=== PATIENT | female | born 1940 | race Caucasian/White ===

== ENCOUNTER → 2017-01-24 | Outpatient (CLI) | payer MEDICARE, BC ==
[~2017-01-24] VITALS: Ht 182.9 cm; Wt 90.7 kg
[~2017-01-24] MED LIST: METF500T9 PO
--- NOTE | 2017-01-24 12:18 | RAD ---
Indication suspect findings on outside mammography and ultrasound. Note is made of recent outside examinations 01/06/2017 demonstrating a suspect mass at the 12:00 position of the right breast. Preliminary ultrasound images were obtained. The suspect mass seen on outside examinations is reproduced. Image guided biopsy was discussed with the patient. The risks of infection and bleeding were outlined. The small risk of pneumothorax was also discussed. The patient understood the risks associated with the procedure and wished to proceed. The skin was prepped and draped in the routine fashion. Local anesthesia was accomplished with 1% buffered lidocaine. Core biopsy system was utilized. Under ultrasound guidance 4 core samples were obtained. Retrieved tissue was transferred to formaldehyde and then to pathology. At the completion of the biopsy procedure a clip was placed at the biopsy site. The patient tolerated the biopsy procedure unremarkably. At the completion of the biopsy and the deployment of the clip the patient was transferred to a dedicated mammographic suite and conventional MLO and CC images were obtained. The clip is appropriately positioned in the area of concern in the right breast. The biopsy site was dressed in routine fashion and the patient discharged with appropriate instructions. IMPRESSION: Successful ultrasound-guided biopsy of suspect mass in the right breast
[2017-01-24 13:29] VITALS: BP 136/83
--- NOTE | 2017-01-27 13:41 | PATHOLOGY ---
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 SEE COMMENT. COMMENT: Sections of the right breast nodule needle biopsy reveal a malignant epithelial neoplasm. The malignant cells form solid nests and tubules within pools of mucin. The malignant cells have modest amounts of pale eosinophilic cytoplasm, and possess rounded to ovoid mildly pleomorphic hyperchromatic nuclei. The tumor measures up to 0.6 cm in greatest dimension on the glass slide. There are no areas of typical invasive ductal carcinoma. There are no tumor associated calcifications. There is no lymphovascular tumor invasion. Breast prognostic studies will be obtained, the results of which will be reported separately. The case is also examined by Dr. Martinez, who concurs with the diagnosis. (JPM:mgr; 01/27/2017) REPORT ELECTRONICALLY SIGNED BY: Thomas Lozano M.D. DATE/TIME: 01/27/2017 13:41 * * * * * * * * GROSS PATHOLOGY: Received in formalin labeled "Mariann Johnson, right breast," are multiple needle cores of yellow-cedeño fibrofatty tissue measuring 0.7 x 0.4 x 0.2 cm in aggregate dimensions. The tissue is submitted in its entirety in cassetteA1. The cold ischemic time is 5 minutes. The total formalin fixation time is 10 hours and 45 minutes. (JPM; 01/24/17) INITIAL CPT CODE(S): A; 89228, 81766(4) Professional services performed by [facility] [place] [address] Technical services performed by [facility] at [address] [place] [address], [facility] [address], [place] [address]. SPECIMEN(S) RECEIVED: A.Right breast nodule CLINICAL HISTORY: Right breast nodule PATIENT: MARIANN JOHNSON /AGE: 4 1940 (Age: 76) PATIENT #: [id number] ALT CASE #: SPECIMEN COLLECTION DATE: 01/24/2017 SPECIMEN RECEIVED DATE: 01/24/2017 [facility] - [address] [place] [id number] - PHONE: [phone] * * * END OF REPORT * * *
== END | disposition home or self-care (01) ==
LOC: US 13:14
PROVIDERS: ATTEND Internal Medicine
DX: R92.8 Other abnormal and inconclusive findings on diagnostic imaging of breast (principal)
CPT/HCPCS: 76942; C1713; G0206; 77065

== ENCOUNTER → 2017-09-05 | Outpatient (CLI) | payer MEDICARE, BC, OTHER | END | disposition home or self-care (01) | LOC: ECHO 09:54 | DX: M79.89 Other specified soft tissue disorders (principal); I51.9 Heart disease, unspecified; R60.0 Localized edema | CPT/HCPCS: 93306 ==

== ENCOUNTER 2018-10-20 14:04 | Emergency (ER) | payer MEDICARE, BC, OTHER ==
[~2018-10-20] VITALS: Ht 167.6 cm; Wt 52.2 kg
[~2018-10-20 14:04] MED LIST changes: +ACET500T68 PO; +ALEN70TA6 PO; +CHOL2000 PO; +CYAN10005 PO; +GLUC1CAP41 PO; +HYDR-2761 PO; +HYDR-3164 PO; +METF10007 PO; +METF500T16; +MULT-460 PO
--- NOTE | 2018-10-20 14:28 | PHYS DOC ---
Past Medical History Past Medical History: Arthritis, Cancer, Other Additional Past Medical Histor: BREAST CA Past Surgical History: Other Additional Past Surgical Histo: R LYMPH NODE REMOVED Alcohol Use: None Drug Use: None Adult General Chief Complaint Chief Complaint: BREAST PROBLEM HPI HPI Patient is a 78 year old with a history of breast cancer status post right lumpectomy 3 years ago and Parkinson's disease presents to the ED and complaining of trip and fall on Friday. Patient states 2 days ago she tripped on a mat while going into a store. States that she hit the right side of her face and right breast/ribs. Describes the pain as sharp. Rates the pain as 8 out of 10. Patient has pain with range of motion. Denies LOC, vision changes, nausea/vomiting, dizziness, weakness, symptoms prior to fall or use of blood thinners. Patient's daughter is her clinic clerk and is at bedside. Also witness the injury. Review of Systems Review of Systems Constitutional: Denies fever or chills [] Eyes: Denies change in visual acuity, redness, or eye pain [] HENT: Complains of right facial injury Denies nasal congestion or sore throat [] Respiratory: Denies cough or shortness of breath [] Cardiovascular: No additional information not addressed in HPI [] GI: Denies abdominal pain, nausea, vomiting, bloody stools or diarrhea [] : Denies dysuria or hematuria [] Musculoskeletal: Complains of right rib pain. Denies back pain.] Integument: Denies rash or skin lesions [] Neurologic: Denies headache, focal weakness or sensory changes [] All other systems were reviewed and found to be within normal limits, except as documented in this note. Current Medications Current Medications Current Medications Medications (Trade) Dose Ordered Sig/Tristan Start Time Stop Time Status Last Admin Dose Admin Acetaminophen/ Hydrocodone Bitart (Lortab 5/325) 1 tab 1X ONCE 10/20/18 14:30 10/20/18 14:31 DC 10/20/18 14:27 1 TAB Allergies Allergies Allergies Coded Allergies Type Severity Reaction Last Updated Verified No Known Medication Allergies Allergy Unknown 07/15/18 Yes tramadol Adverse Reaction Intermediate vomiting and diarrhea 02/26/17 Yes Physical Exam Physical Exam Constitutional: Well developed, well nourished, no acute distress, non-toxic appearance. [] HENT: Normocephalic, atraumatic. airway patent. mild right maxillary region tenderness. Normal Jaw ROM. No overlying skin changes. Eyes: PERRLA, EOMI, conjunctiva normal, no discharge. [] Neck: Normal range of motion, no tenderness, supple, no stridor. [] Cardiovascular:Heart rate regular rhythm, no murmur [] Lungs & Thorax: Bilateral breath sounds clear to auscultation. mild right anterior ribs/right breast tenderness. Pain with palpation and ROM. No overlying skin changes. No palpable mass.[] Abdomen: Bowel sounds normal, soft, no tenderness, no masses, no pulsatile masses. [] Skin: Warm, dry, no erythema, no rash. [] Back: No tenderness, no CVA tenderness. [] Extremities: No tenderness, no cyanosis, no clubbing, ROM intact, no edema. [] Neurologic: Alert and oriented X 3, normal motor function, normal sensory function, no focal deficits noted. [] Psychologic: Affect normal, judgement normal, mood normal. [] Current Patient Data Vital Signs Vital Signs Date Time Temp Pulse Resp B/P (MAP) Pulse Ox O2 Delivery O2 Flow Rate FiO2 10/20/18 14:28 97.7 81 16 142/64 (90) 97 Room Air 97.7 EKG EKG [] Radiology/Procedures Radiology/Procedures []CT of the head and facial bones without contrast 10/20/2018 2:42 PM Indication: TRIPPED OVER OBJECT AND HIT FACE AT [facility]. PAIN Comparison: None available Procedure: Multidetector CT imaging of the head and facial bones was performed without the administration of contrast. Findings: There is no evidence of acute intracranial hemorrhage. There is no evidence of acute territorial infarction. Please note that CT is limited for evaluation of acute ischemia. No mass effect or midline shift is identified . The ventricles and basilar cisterns have an appropriate appearance. No abnormal extra-axial fluid collections are seen. No evidence of acute facial bone fractures identified. Paranasal sinuses are clear. Zygomatic arches and pterygoid plates are intact. Bony orbits are intact. No other orbital abnormality is identified. Nasal bones are intact. Impression: 1.No evidence of acute intracranial abnormality 2. No evidence of acute facial bone fracture. CT scan of the chest without contrast Clinical indications: Fall. Breast pain. History of lung nodules. COMPARISON: July 15, 2017. TECHNIQUE: Noncontrast helical CT scanning of the chest was performed. Without contrast, the sensitivity to detect organ pathology is decreased. PQRS compliance Statement One or more of the following individualized dose reduction techniques were utilized for this study: 1. Automated exposure control 2. Adjustment of the mA and/or kV according to patient size 3. Use of iterative reconstruction technique FINDINGS: No enlarged thoracic lymphadenopathy is evident. No focal aneurysmal dilatation of the thoracic aorta is seen. Heart size is within normal limits. No pericardial effusion is seen. There is dependent atelectasis within both lower lobes. No new lung consolidation with air bronchograms is seen. Lung nodules described previously are again seen. No new lung nodule is evident. No pleural effusion or pneumothorax is seen. Proximal bronchial tree is patent. Old healed posterior left second and third and fourth and fifth and sixth rib fractures are seen. No acute appearing rib fracture is evident. No compression fracture is evident. Mild pectus deformity of the sternum is seen. No lytic process is seen. IMPRESSION: No acute radiographic abnormality is evident. No significant change in lung nodules described on July 15, 2018. As per that report, follow-up chest CT in July or August 2019 is recommended to ensure stability of lung nodules. PROCEDURE: CT CERVICAL SPINE WO CONTRAST Examination: CT CERVICAL SPINE WO CONTRAST History: TRIPPED OVER OBJECT AND HIT FACE AT [facility]. PAIN Comparison/Correlation: None Findings: Axial images of the cervical spine were obtained without contrast. Sagittal and coronal reformatted images were provided. Atlantoaxial joint degenerative remodeling is present. Mild C4-5 disc space narrowing is present. Moderate C5-C6 disc space narrowing. Mild CT 6/7 disc space narrowing. No fracture or bony destruction. Mild neural foraminal narrowing at left seen 4-5 due to bony encroachment. Soft tissues of neck are unremarkable. Impression: No acute fracture or malalignment. Degenerative change. Course & Med Decision Making Course & Med Decision Making Pertinent Labs and Imaging studies reviewed. (See chart for details) []Discussed imaging findings with patient and clinic clerk/daughter at bedside. Patient's pain improved in the ED. No acute injury or findings on physical exam. Patient well-appearing. Discussed symptomatic treatment and follow-up outpatient with PCP. Reviewed nodule findings and advisement for follow-up CT scan timeline. Provided contact information/education. Discussed reasons to return to the ED. Patient and Daughter understands and agrees with plan. Dragon Disclaimer Dragon Disclaimer This electronic medical record was generated, in whole or in part, using a voice recognition dictation system. Departure Departure Impression: Primary Impression: Rib pain Additional Impressions: Facial injury Breast pain Disposition: HOME, SELF-CARE Condition: IMPROVED Referrals: MARIA DOLORES BARRON MD (PCP) Patient Instructions: Rib Contusion Problem Qualifiers SABINO WOODS Oct 20, 2018 14:28
[2018-10-20] MEDS ORDERED: HYDROcodone/APAP 5/325MG 1 TAB TABLET PO ONE (14:30)
--- NOTE | 2018-10-20 15:05 | RAD ---
Examination: CT CERVICAL SPINE WO CONTRAST History: TRIPPED OVER OBJECT AND HIT FACE AT [facility]. PAIN Comparison/Correlation: None Findings: Axial images of the cervical spine were obtained without contrast. Sagittal and coronal reformatted images were provided. Atlantoaxial joint degenerative remodeling is present. Mild C4-5 disc space narrowing is present. Moderate C5-C6 disc space narrowing. Mild CT 6/7 disc space narrowing. No fracture or bony destruction. Mild neural foraminal narrowing at left seen 4-5 due to bony encroachment. Soft tissues of neck are unremarkable. Impression: No acute fracture or malalignment. Degenerative change. PQRS Compliance Statement: One or more of the following individualized dose reduction techniques were utilized for this examination: 1. Automated exposure control 2. Adjustment of the mA and/or kV according to patient size 3. Use of iterative reconstruction technique Electronically signed by: Donal Esquivel MD (10/20/2018 3:02 PM) [id number]
--- NOTE | 2018-10-20 15:08 | RAD ---
CT of the head and facial bones without contrast 10/20/2018 2:42 PM Indication: TRIPPED OVER OBJECT AND HIT FACE AT [facility]. PAIN Comparison: None available Procedure: Multidetector CT imaging of the head and facial bones was performed without the administration of contrast. Findings: There is no evidence of acute intracranial hemorrhage. There is no evidence of acute territorial infarction. Please note that CT is limited for evaluation of acute ischemia. No mass effect or midline shift is identified . The ventricles and basilar cisterns have an appropriate appearance. No abnormal extra-axial fluid collections are seen. No evidence of acute facial bone fractures identified. Paranasal sinuses are clear. Zygomatic arches and pterygoid plates are intact. Bony orbits are intact. No other orbital abnormality is identified. Nasal bones are intact. Impression: 1.No evidence of acute intracranial abnormality 2. No evidence of acute facial bone fracture. CT DOSING PQRS STATEMENT: One or more of the following individualized dose reduction techniques were utilized for this examination: 1. Automated exposure control 2. Adjustment of the mA and/or kV according to patient size 3. Use of iterative reconstruction technique Electronically signed by: Oscar Gunn MD (10/20/2018 3:05 PM) [id number]
--- NOTE | 2018-10-20 16:29 | RAD ---
CT scan of the chest without contrast Clinical indications: Fall. Breast pain. History of lung nodules. COMPARISON: July 15, 2017. TECHNIQUE: Noncontrast helical CT scanning of the chest was performed. Without contrast, the sensitivity to detect organ pathology is decreased. PQRS compliance Statement One or more of the following individualized dose reduction techniques were utilized for this study: 1. Automated exposure control 2. Adjustment of the mA and/or kV according to patient size 3. Use of iterative reconstruction technique FINDINGS: No enlarged thoracic lymphadenopathy is evident. No focal aneurysmal dilatation of the thoracic aorta is seen. Heart size is within normal limits. No pericardial effusion is seen. There is dependent atelectasis within both lower lobes. No new lung consolidation with air bronchograms is seen. Lung nodules described previously are again seen. No new lung nodule is evident. No pleural effusion or pneumothorax is seen. Proximal bronchial tree is patent. Old healed posterior left second and third and fourth and fifth and sixth rib fractures are seen. No acute appearing rib fracture is evident. No compression fracture is evident. Mild pectus deformity of the sternum is seen. No lytic process is seen. IMPRESSION: No acute radiographic abnormality is evident. No significant change in lung nodules described on July 15, 2018. As per that report, follow-up chest CT in July or August 2019 is recommended to ensure stability of lung nodules. Electronically signed by: Bharath Navarro MD (10/20/2018 4:26 PM) [id number]
[2018-10-20 16:30] VITALS: BP 112/68
[2018-11-23] MEDS ORDERED: CARB1TAB2 PO (08:37)
[2018-11-23] MEDS ORDERED: ACET500T33 PO (08:37)
== END 2018-10-20 16:44 | disposition home or self-care (01) ==
LOC: ER 14:04
DX: S09.8XXA Other specified injuries of head, initial encounter (principal); R07.81 Pleurodynia; N64.4 Mastodynia; M54.2 Cervicalgia; M19.90 Unspecified osteoarthritis, unspecified site; Z88.5 Allergy status to narcotic agent; W01.0XXA Fall on same level from slipping, tripping and stumbling without subsequent striking against object, initial encounter; Y93.89 Activity, other specified; Y92.512 Supermarket, store or market as the place of occurrence of the external cause; Y99.8 Other external cause status
CPT/HCPCS: 70450; 70486; 71250; 72125; 99284-25

== ENCOUNTER 2020-10-29 09:53 | Inpatient (IN) | payer MEDICARE, BC, OTHER ==
[~2020-10-29] VITALS: Ht 160 cm; Wt 61.0 kg
[~2020-10-29 09:53] MED LIST changes: +ACET500T33 PO; -ALEN70TA6 PO; +ALEN70TA71 PO; +ASPI-630 PO; +ATOR20TA58 PO; +CARB-183 PO; +CIPR250T30 PO; +CYAN-25 PO; -CYAN10005 PO; +FURO20TA3 PO; +INSU100I11 SQ; +METF-658 PO; -METF500T9 PO; +PIOG30TA62 PO
[2020-10-29] MEDS ORDERED: IV NORMAL SALINE 1000ML BAG 1,000 ML IV SCH (10:00)
[2020-10-29 10:30] LABS: BASO % 1 % (0-3); EOS % 1 % (0-3); HEMATOCRIT 32.3 % (36.0-47.0); HEMOGLOBIN 10.9 g/dL (12.0-15.5); LYMPH # 0.4 x10^3/uL (1.0-4.8); LYMPH % 15 % (24-48); MEAN CORPUSCULAR HEMOGLOBIN 31 pg (25-35); MEAN CORPUSCULAR HGB CONC 34 g/dL (31-37); MEAN CORPUSCULAR VOLUME 92 fL (79-100); MONO # 0.3 x10^3/uL (0.0-1.1); MONO % 12 % (0-9); NEUT % 72 % (31-73); PLATELET COUNT 292 x10^3/uL (140-400); RED BLOOD COUNT 3.53 x10^6/uL (3.50-5.40); RED CELL DISTRIBUTION WIDTH 15.5 % (11.5-14.5); WHITE BLOOD COUNT 2.8 x10^3/uL (4.0-11.0)
--- NOTE | 2020-10-29 10:31 | RAD ---
EXAM: CHEST ONE VIEW. HISTORY: Chest pain. COMPARISON: 09/04/2019. FINDINGS: A frontal view of the chest is obtained. There are no confluent infiltrates. Mild interstitial opacities in the bases are stable and likely re flects scarring. The lungs are expanded to the 12th posterior ribs. There is no pneumothorax or pleur al effusion. The heart is at the upper limits of normal size given this projection. A surgical clip i s noted in the right axilla. There are atherosclerotic calcifications of the aorta. IMPRESSION: 1. Correlate for chronic obstructive pulmonary disease. Mild interstitial lung disease versus scarrin g in the bases. Electronically signed by: Juan Carlos Bloom MD (10/29/2020 10:29 AM) [facility]
[2020-10-29 10:39] LABS: BARBITURATES NEG (NEG); BENZODIAZEPINES NEG (NEG); CANNABINOIDS NEG (NEG); COCAINE NEG (NEG); METHADONE NEG (NEG); OPIATES NEG (NEG); PHENCYCLIDINE NEG (NEG)
[2020-10-29 10:40] LABS: AMPHETAMINE/METHAMPHETAMINE NEG (NEG)
[2020-10-29 10:44] LABS: CALCIUM 9.1 mg/dL (8.5-10.1); CREATININE 0.7 mg/dL (0.6-1.0); GFR 80.3
[2020-10-29 10:50] LABS: ALBUMIN 4.1 g/dL (3.4-5.0); ALBUMIN/GLOBULIN RATIO 1.3 (1.0-1.7); MAGNESIUM 1.8 mg/dL (1.8-2.4); TOTAL BILIRUBIN 0.4 mg/dL (0.2-1.0); TOTAL PROTEIN 7.3 g/dL (6.4-8.2)
[2020-10-29 11:08] LABS: BILIRUBIN,URINE NEGATIVE (NEG); CLARITY,URINE CLEAR; COLOR,URINE YELLOW; NITRITE,URINE NEGATIVE (NEG); PH,URINE 6.5 (<5.0-8.0); PROTEIN,URINE NEGATIVE (NEG-TRACE); UROBILINOGEN,URINE 0.2 mg/dL (0.2 mg/dL)
[2020-10-29 11:52] LABS: BACTERIA,URINE 0 /HPF (0-FEW); RBC,URINE 0 /HPF (0-2); WBC,URINE OCC /HPF (0-4)
--- NOTE | 2020-10-29 13:27 | RAD ---
EXAM: Head CT without contrast; maxillofacial bone CT without contrast; cervical spine CT without con trast. HISTORY: Trauma. TECHNIQUE: Computed tomographic images of the head, maxillofacial bones and cervical spine were obtai des without contrast. *One or more of the following individualized dose reduction techniques were utilized for this examina tion: 1. Automated exposure control. 2. Adjustment of the mA and/or kV according to patient size. 3. Use of iterative reconstruction technique. COMPARISON: 06/03/2020. FINDINGS: Head: There is no hemorrhage. There is no mass effect or midline shift. There is no hydrocephalus. Th ere is cerebral atrophy. There is decreased attenuation within the cerebral white matter due to chron ic small vessel disease. No calvarial lesion is seen. The mastoid air cells are clear. Maxillofacial bones: No displaced fracture is seen. The temporomandibular joints are intact. There is mild ethmoid and left maxillary sinus mucosal thickening. There is mild nasal septal deviation. The ostiomeatal units are patent. Cervical spine: There is cervical curvature due to thoracic scoliosis. There is degenerative endplate remodeling with disc space narrowing and osteophytosis throughout the cervical spine. There is calci fication within several disc spaces. There is multilevel facet and uncovertebral arthropathy. No acut e fracture is seen. There is biapical pleural parenchymal scarring. There is no pneumothorax. The com bination of degenerative changes results in mild left foraminal stenosis at C3-C4, moderate left fora patrice stenosis at C4-C5, and mild right foraminal stenosis at C6-C7. IMPRESSION: 1. No acute intracranial finding or evidence of acute maxillary facial bone or cervical spine trauma. 2. Bilateral cerebral white changes, but be due to chronic small vessel disease. 3. Cerebral atrophy. 4. Degenerative change within the cervical spine, resulting in stenosis as described above. Electronically signed by: Ester Galeas MD (10/29/2020 1:25 PM) [id number]
--- NOTE | 2020-10-29 13:54 | EKG ---
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
--- NOTE | 2020-10-29 14:05 | PHYS DOC ---
Past Medical History Past Medical History: Arthritis, Cancer, Other Additional Past Medical Histor: BREAST CA, ESSENTIAL TREMORS, BLADDER INFECTION Past Surgical History: Other Additional Past Surgical Histo: R LYMPH NODE REMOVED Smoking Status: Never Smoker Alcohol Use: None Drug Use: None Adult General Chief Complaint Chief Complaint: WEAKNESS/GENERALIZED HPI HPI Patient is a 80 year old female brought to the emergency department by EMS for new onset of generalized weakness. 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 Daughter also notes that the patient has a history of Parkinson's disease and has had 4 falls over the last week. States this is a mild increase for the patient at baseline. No reported fevers, chills, cough, back pain or other additional injury. Review of Systems Review of Systems Constitutional: Denies fever or chills [] Eyes: Denies change in visual acuity, redness, or eye pain [] HENT: Denies nasal congestion or sore throat [] Respiratory: Denies cough or shortness of breath [] Cardiovascular: No additional information not addressed in HPI [] GI: Denies abdominal pain, nausea, vomiting, bloody stools or diarrhea [] : Denies dysuria or hematuria [] Musculoskeletal: Denies back pain or joint pain [] Integument: Denies rash or skin lesions [] Neurologic: Denies headache, focal weakness or sensory changes [] Endocrine: Denies polyuria or polydipsia [] All other systems were reviewed and found to be within normal limits, except as documented in this note. Current Medications Current Medications Current Medications Medications (Trade) Dose Ordered Sig/Tristan Start Time Stop Time Status Last Admin Dose Admin Sodium Chloride 1,000 ml @ 1,000 mls/hr Q1H 10/29/20 10:00 10/29/20 10:59 DC 10/29/20 10:29 1,000 MLS/HR Allergies Allergies Allergies Coded Allergies Type Severity Reaction Last Updated Verified amoxicillin Allergy Intermediate Nausea and Vomiting/diarrhea 09/05/19 Yes clavulanic acid Allergy Intermediate Nausea and Vomiting/diarrhea 09/05/19 Yes tramadol Adverse Reaction Intermediate vomiting and diarrhea 02/26/17 Yes Physical Exam Physical Exam Constitutional: Well developed, well nourished, no acute distress, non-toxic appearance. [] HENT: Normocephalic, atraumatic, bilateral external ears normal, oropharynx moist, no oral exudates, nose normal. [] Eyes: PERRLA, EOMI, conjunctiva normal, no discharge. [] Neck: Normal range of motion, no tenderness, supple, no stridor. [] Cardiovascular:Heart rate regular rhythm, no murmur [] Lungs & Thorax: Bilateral breath sounds clear to auscultation [] Abdomen: Bowel sounds normal, soft, no tenderness, no masses, no pulsatile masses. [] Skin: Warm, dry, no erythema, no rash. [] Back: No tenderness, no CVA tenderness. [] Extremities: No tenderness, no cyanosis, no clubbing, ROM intact, no edema. [] Neurologic: Alert and oriented X 3, normal motor function, normal sensory function, no focal deficits noted. [] Psychologic: Affect normal, judgement normal, mood normal. [] Current Patient Data Vital Signs Vital Signs Date Time Temp Pulse Resp B/P (MAP) Pulse Ox O2 Delivery O2 Flow Rate FiO2 10/29/20 09:53 97.6 75 16 146/63 (90) 94 Room Air 97.6 Lab Values Laboratory Tests Test 10/29/20 10:10 10/29/20 10:15 White Blood Count 2.8 x10^3/uL (4.0-11.0) L Red Blood Count 3.53 x10^6/uL (3.50-5.40) Hemoglobin 10.9 g/dL (12.0-15.5) L Hematocrit 32.3 % (36.0-47.0) L Mean Corpuscular Volume 92 fL (79-100) Mean Corpuscular Hemoglobin 31 pg (25-35) Mean Corpuscular Hemoglobin Concent 34 g/dL (31-37) Red Cell Distribution Width 15.5 % (11.5-14.5) H Platelet Count 292 x10^3/uL (140-400) Neutrophils (%) (Auto) 72 % (31-73) Lymphocytes (%) (Auto) 15 % (24-48) L Monocytes (%) (Auto) 12 % (0-9) H Eosinophils (%) (Auto) 1 % (0-3) Basophils (%) (Auto) 1 % (0-3) Neutrophils # (Auto) 2.0 x10^3/uL (1.8-7.7) Lymphocytes # (Auto) 0.4 x10^3/uL (1.0-4.8) L Monocytes # (Auto) 0.3 x10^3/uL (0.0-1.1) Eosinophils # (Auto) 0.0 x10^3/uL (0.0-0.7) Basophils # (Auto) 0.0 x10^3/uL (0.0-0.2) D-Dimer (Sejal) 0.41 ug/mlFEU (0.00-0.50) Sodium Level 140 mmol/L (136-145) Potassium Level 4.0 mmol/L (3.5-5.1) Chloride Level 103 mmol/L (98-107) Carbon Dioxide Level 28 mmol/L (21-32) Anion Gap 9 (6-14) Blood Urea Nitrogen 24 mg/dL (7-20) H Creatinine 0.7 mg/dL (0.6-1.0) Estimated GFR (Cockcroft-Gault) 80.3 BUN/Creatinine Ratio 34 (6-20) H Glucose Level 160 mg/dL (70-99) H Calcium Level 9.1 mg/dL (8.5-10.1) Magnesium Level 1.8 mg/dL (1.8-2.4) Total Bilirubin 0.4 mg/dL (0.2-1.0) Aspartate Amino Transferase (AST) 22 U/L (15-37) Alanine Aminotransferase (ALT) 8 U/L (14-59) L Alkaline Phosphatase 45 U/L (46-116) L Troponin I Quantitative < 0.017 ng/mL (0.000-0.055) LT-Ncm-Q-Type Natriuretic Peptide 166 pg/mL (0-449) Total Protein 7.3 g/dL (6.4-8.2) Albumin 4.1 g/dL (3.4-5.0) Albumin/Globulin Ratio 1.3 (1.0-1.7) Lipase 117 U/L (73-393) Urine Collection Type Unknown Urine Color Yellow Urine Clarity Clear Urine pH 6.5 (<5.0-8.0) Urine Specific [place] 1.015 (1.000-1.030) Urine Protein Negative mg/dL (NEG-TRACE) Urine Glucose (UA) Negative mg/dL (NEG) Urine Ketones (Stick) Trace mg/dL (NEG) Urine Blood Negative (NEG) Urine Nitrite Negative (NEG) Urine Bilirubin Negative (NEG) Urine Urobilinogen Dipstick 0.2 mg/dL (0.2 mg/dL) Urine Leukocyte Esterase Negative (NEG) Urine RBC 0 /HPF (0-2) Urine WBC Occ /HPF (0-4) Urine Squamous Epithelial Cells Few /LPF Urine Bacteria 0 /HPF (0-FEW) Urine Opiates Screen Neg (NEG) Urine Methadone Screen Neg (NEG) Urine Barbiturates Neg (NEG) Urine Phencyclidine Screen Neg (NEG) Urine Amphetamine/Methamphetamine Neg (NEG) Urine Benzodiazepines Screen Neg (NEG) Urine Cocaine Screen Neg (NEG) Urine Cannabinoids Screen Neg (NEG) Urine Ethyl Alcohol Neg (NEG) Laboratory Tests 10/29/20 10:10 Laboratory Tests 10/29/20 10:10 EKG EKG [] Radiology/Procedures Radiology/Procedures EXAM: Head CT without contrast; maxillofacial bone CT without contrast; cervical spine CT without contrast. HISTORY: Trauma. TECHNIQUE: Computed tomographic images of the head, maxillofacial bones and cervical spine were obtained without contrast. *One or more of the following individualized dose reduction techniques were utilized for this examination: 1. Automated exposure control. 2. Adjustment of the mA and/or kV according to patient size. 3. Use of iterative reconstruction technique. COMPARISON: 06/03/2020. FINDINGS: Head: There is no hemorrhage. There is no mass effect or midline shift. There is no hydrocephalus. There is cerebral atrophy. There is decreased attenuation within the cerebral white matter due to chronic small vessel disease. No calvarial lesion is seen. The mastoid air cells are clear. Maxillofacial bones: No displaced fracture is seen. The temporomandibular joints are intact. There is mild ethmoid and left maxillary sinus mucosal thickening. There is mild nasal septal deviation. The ostiomeatal units are patent. Cervical spine: There is cervical curvature due to thoracic scoliosis. There is degenerative endplate remodeling with disc space narrowing and osteophytosis throughout the cervical spine. There is calcification within several disc spaces. There is multilevel facet and uncovertebral arthropathy. No acute fracture is seen. There is biapical pleural parenchymal scarring. There is no pneumothorax. The combination of degenerative changes results in mild left foraminal stenosis at C3-C4, moderate left foraminal stenosis at C4-C5, and mild right foraminal stenosis at C6-C7. IMPRESSION: 1. No acute intracranial finding or evidence of acute maxillary facial bone or cervical spine trauma. 2. Bilateral cerebral white changes, but be due to chronic small vessel disease. 3. Cerebral atrophy. 4. Degenerative change within the cervical spine, resulting in stenosis as described above. Electronically signed by: Ester Galeas MD (10/29/2020 1:25 PM) [id number] Course & Med Decision Making Course & Med Decision Making Pertinent Labs and Imaging studies reviewed. (See chart for details) [id number] presented to the emergency department for generalized nonspecific weakness. No focal neuro deficits observed but there is some evidence of facial trauma of indeterminate age. Labs obtained to evaluate for any underlying etiology. No back pain, tenderness or any other findings that would suggest any acute trauma to the neck or the back. After the daughter arrived she did state that she was concerned about increasing falls and therefore will obtain a CT scan of the head and cervical spine. Labs reviewed the patient noted to have a mildly elevated BUN suggestive of dehydration. When the nurse attempted to ambulate the patient she was not able to bear any weight on her lower extremities and therefore need to be admitted for ambulatory dysfunction. CT scan of the head and cervical spine did not demonstrate any acute traumatic injury that would explain the patient's current symptomatology. At this time will plan for admission Dragon Disclaimer Dragon Disclaimer This electronic medical record was generated, in whole or in part, using a voice recognition dictation system. Departure Departure Impression: Primary Impression: Ambulatory dysfunction Disposition: ADMITTED INPATIENT Condition: GOOD Referrals: Quita ROSS MD (PCP) DHRUV GUZMAN MD Oct 29, 2020 14:04
[2020-10-29] MEDS ORDERED: ONDANSETRON PF 4 MG/2 ML VIAL. IV PRN (14:15)
[2020-10-29] MEDS ORDERED: MORPHINE SULFATE 4 MG/ML VIAL. IV PRN (14:15)
--- NOTE | 2020-10-29 14:15 | PDOC1 ---
History and Physical Date of Service: DOS: DATE: 10/29/20 TIME: 14:13 History of Present Illness: HPI: 80 year old female brought to the emergency department by EMS for new onset of generalized weakness. 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 Daughter also notes that the patient has a history of Parkinson's disease and has had 4 falls over the last week. States this is a mild increase for the patient at baseline. No reported fevers, chills, cough, back pain or other additional injury. Past Medical/Surgical History: PMH/PSH: Past Medical History: Diabetes mellitus type 2 arthritis, Cancer, BREAST CA, ESSENTIAL TREMORS, BLADDER INFECTION, history of Parkinson's disease Past Surgical History: R LYMPH NODE REMOVED Allergies: Allergies: Coded Allergies: amoxicillin (Verified Allergy, Intermediate, Nausea and Vomiting/diarrhea , 09/05/19) clavulanic acid (Verified Allergy, Intermediate, Nausea and Vomiting/diarrhea , 09/05/19) tramadol (Verified Adverse Reaction, Intermediate, vomiting and diarrhea, 02/26/17) Family History: Family History: Reviewed with no relevant findings Social History: Social History: Smoking Status: Never Smoker Alcohol Use: None Drug Use: None Current Medications: Current Medications Current Medications Sodium Chloride 1,000 ml @ 1,000 mls/hr Q1H IV Last administered on 10/29/20at 10:29; Start 10/29/20 at 10:00; Stop 10/29/20 at 10:59; Status DC Ondansetron HCl (Zofran) 4 mg PRN Q8HRS PRN IV NAUSEA/VOMITING; Start 10/29/20 at 14:15; Stop 10/30/20 at 14:14; Status UNV Morphine Sulfate (Morphine Sulfate) 4 mg PRN Q2HR PRN IV PAIN; Start 10/29/20 at 14:15; Stop 10/30/20 at 14:14; Status UNV Active Scripts Active Aspirin 81 Mg Tab.chew 81 Mg PO DAILYWBKFT 30 Days Atorvastatin Calcium 20 Mg Tablet 20 Mg PO QHS 30 Days Cipro (Ciprofloxacin Hcl) 250 Mg Tablet 250 Mg PO BID 3 Days Humalog (Insulin Lispro) 100 Unit/1 Ml Insuln.pen 0-5 Unit SQ TIDACHC 30 Days Reported Pioglitazone Hcl 30 Mg Tablet 1 Tab PO DAILY 90 Days Sinemet 25-100 Mg Tablet (Carbidopa/Levodopa) 1 Each Tablet 1 Tab PO TID Tylenol Extra Strength (Acetaminophen) 500 Mg Tablet 500 Mg PO BID Metformin Hcl 500 Mg Tablet 500 Mg 2TABS PO BID Vitamin B-12 (Cyanocobalamin (Vitamin B-12)) 1,000 Mcg Tablet 1,000 Mcg PO DAILY Glucosamine & Chondroitin Cap (Glucosa Boss 2KCL/Chondroitin Boss) 1 Each Capsule 1 Each PO DAILY Vitamin D (Cholecalciferol (Vitamin D3)) 2,000 Unit Capsule 1 Cap PO DAILY Alendronate Sodium 70 Mg Tablet 70 Mg PO WEEKLY ON FRIDAY Multiple Vitamin (Multivitamin With Minerals) 1 Each Tablet 1 Each PO DAILY ROS: Review of Systems Review of System REVIEW OF SYSTEMS: GENERAL: Denies weakness SKIN: No bruising, hair changes or rashes. EYES: No blurred, double or loss of vision. NOSE AND THROAT: No history of nosebleeds, hoarseness or sore throat. HEART: No history of palpitations, chest pain or shortness of breath on exertion. LUNGS: Denies cough, hemoptysis, wheezing or shortness of breath. GASTROINTESTINAL: Denies changes in appetite, nausea, vomiting, diarrhea or constipation. GENITOURINARY: No history of frequency, urgency, hesitancy or nocturia. NEUROLOGIC: Denies history of numbness, tingling, or tremor. PSYCHIATRIC: No history of panic, anxiety or depression. ENDOCRINE: No history of heat or cold intolerance, polyuria or polydipsia. EXTREMITIES: Denies joint pain, pain on walking or stiffness. Physical Exam: Vital Signs: Vital Signs Date Time Temp Pulse Resp B/P (MAP) Pulse Ox O2 Delivery O2 Flow Rate FiO2 10/29/20 09:53 97.6 75 16 146/63 (90) 94 Room Air 97.6 Physcial Exam: GEN: No apparent distress. Alert and oriented HEENT: Normal cephalic, atraumatic, external auditory canals are patent EYES: Extraocular muscles are intact, pupil are equally round and reactive to light and accommodation MUSCULOSKELETAL: Well developed , well nourished, good range of motion ENDOCRINE: No thyromegaly was palpated LYMPHATICS: No cervical chain or axillary nodes were noted HEMATOPOIETIC: No bruising NECK: Supple, no JVD, no thyromegaly was noted LUNGS: Clear to auscultation in all lung slaughter without rhonchi or wheezing HEART: RRR, S!, S2 present. Peripheral pulses intact, no obvious murmurs noted ABDOMEN: Soft, nontender. Positive bowel sounds, no organomegaly, normal bowel sounds EXTREMITIES: Without clubbing, cyanosis, or edema. Pedal pulses intact. Negative Homans sign NEUROLOGIC: Normal speech and tone. A&O x 3, moves all extremities, no obvious focal deficits PSYCHIATRIC: Normal affect, normal mood. Stable SKIN: No ulcerations or rashes, good skin turgor, no jaundice VASCULAR: Good capillary refill, neurovascular bundle appears to be intact Labs: Labs: Laboratory Tests Test 10/29/20 10:10 10/29/20 10:15 White Blood Count 2.8 x10^3/uL (4.0-11.0) Red Blood Count 3.53 x10^6/uL (3.50-5.40) Hemoglobin 10.9 g/dL (12.0-15.5) Hematocrit 32.3 % (36.0-47.0) Mean Corpuscular Volume 92 fL (79-100) Mean Corpuscular Hemoglobin 31 pg (25-35) Mean Corpuscular Hemoglobin Concent 34 g/dL (31-37) Red Cell Distribution Width 15.5 % (11.5-14.5) Platelet Count 292 x10^3/uL (140-400) Neutrophils (%) (Auto) 72 % (31-73) Lymphocytes (%) (Auto) 15 % (24-48) Monocytes (%) (Auto) 12 % (0-9) Eosinophils (%) (Auto) 1 % (0-3) Basophils (%) (Auto) 1 % (0-3) Neutrophils # (Auto) 2.0 x10^3/uL (1.8-7.7) Lymphocytes # (Auto) 0.4 x10^3/uL (1.0-4.8) Monocytes # (Auto) 0.3 x10^3/uL (0.0-1.1) Eosinophils # (Auto) 0.0 x10^3/uL (0.0-0.7) Basophils # (Auto) 0.0 x10^3/uL (0.0-0.2) D-Dimer (Sejal) 0.41 ug/mlFEU (0.00-0.50) Sodium Level 140 mmol/L (136-145) Potassium Level 4.0 mmol/L (3.5-5.1) Chloride Level 103 mmol/L (98-107) Carbon Dioxide Level 28 mmol/L (21-32) Anion Gap 9 (6-14) Blood Urea Nitrogen 24 mg/dL (7-20) Creatinine 0.7 mg/dL (0.6-1.0) Estimated GFR (Cockcroft-Gault) 80.3 BUN/Creatinine Ratio 34 (6-20) Glucose Level 160 mg/dL (70-99) Calcium Level 9.1 mg/dL (8.5-10.1) Magnesium Level 1.8 mg/dL (1.8-2.4) Total Bilirubin 0.4 mg/dL (0.2-1.0) Aspartate Amino Transf (AST/SGOT) 22 U/L (15-37) Alanine Aminotransferase (ALT/SGPT) 8 U/L (14-59) Alkaline Phosphatase 45 U/L (46-116) Troponin I Quantitative < 0.017 ng/mL (0.000-0.055) OA-Jkm-D-Type Natriuretic Peptide 166 pg/mL (0-449) Total Protein 7.3 g/dL (6.4-8.2) Albumin 4.1 g/dL (3.4-5.0) Albumin/Globulin Ratio 1.3 (1.0-1.7) Lipase 117 U/L (73-393) Urine Collection Type Unknown Urine Color Yellow Urine Clarity Clear Urine pH 6.5 (<5.0-8.0) Urine Specific [place] 1.015 (1.000-1.030) Urine Protein Negative mg/dL (NEG-TRACE) Urine Glucose (UA) Negative mg/dL (NEG) Urine Ketones (Stick) Trace mg/dL (NEG) Urine Blood Negative (NEG) Urine Nitrite Negative (NEG) Urine Bilirubin Negative (NEG) Urine Urobilinogen Dipstick 0.2 mg/dL (0.2 mg/dL) Urine Leukocyte Esterase Negative (NEG) Urine RBC 0 /HPF (0-2) Urine WBC Occ /HPF (0-4) Urine Squamous Epithelial Cells Few /LPF Urine Bacteria 0 /HPF (0-FEW) Urine Opiates Screen Neg (NEG) Urine Methadone Screen Neg (NEG) Urine Barbiturates Neg (NEG) Urine Phencyclidine Screen Neg (NEG) Urine Amphetamine/Methamphetamine Neg (NEG) Urine Benzodiazepines Screen Neg (NEG) Urine Cocaine Screen Neg (NEG) Urine Cannabinoids Screen Neg (NEG) Urine Ethyl Alcohol Neg (NEG) Laboratory Tests Test 10/29/20 10:10 10/29/20 10:15 White Blood Count 2.8 x10^3/uL (4.0-11.0) Red Blood Count 3.53 x10^6/uL (3.50-5.40) Hemoglobin 10.9 g/dL (12.0-15.5) Hematocrit 32.3 % (36.0-47.0) Mean Corpuscular Volume 92 fL (79-100) Mean Corpuscular Hemoglobin 31 pg (25-35) Mean Corpuscular Hemoglobin Concent 34 g/dL (31-37) Red Cell Distribution Width 15.5 % (11.5-14.5) Platelet Count 292 x10^3/uL (140-400) Neutrophils (%) (Auto) 72 % (31-73) Lymphocytes (%) (Auto) 15 % (24-48) Monocytes (%) (Auto) 12 % (0-9) Eosinophils (%) (Auto) 1 % (0-3) Basophils (%) (Auto) 1 % (0-3) Neutrophils # (Auto) 2.0 x10^3/uL (1.8-7.7) Lymphocytes # (Auto) 0.4 x10^3/uL (1.0-4.8) Monocytes # (Auto) 0.3 x10^3/uL (0.0-1.1) Eosinophils # (Auto) 0.0 x10^3/uL (0.0-0.7) Basophils # (Auto) 0.0 x10^3/uL (0.0-0.2) D-Dimer (Sejal) 0.41 ug/mlFEU (0.00-0.50) Sodium Level 140 mmol/L (136-145) Potassium Level 4.0 mmol/L (3.5-5.1) Chloride Level 103 mmol/L (98-107) Carbon Dioxide Level 28 mmol/L (21-32) Anion Gap 9 (6-14) Blood Urea Nitrogen 24 mg/dL (7-20) Creatinine 0.7 mg/dL (0.6-1.0) Estimated GFR (Cockcroft-Gault) 80.3 BUN/Creatinine Ratio 34 (6-20) Glucose Level 160 mg/dL (70-99) Calcium Level 9.1 mg/dL (8.5-10.1) Magnesium Level 1.8 mg/dL (1.8-2.4) Total Bilirubin 0.4 mg/dL (0.2-1.0) Aspartate Amino Transf (AST/SGOT) 22 U/L (15-37) Alanine Aminotransferase (ALT/SGPT) 8 U/L (14-59) Alkaline Phosphatase 45 U/L (46-116) Troponin I Quantitative < 0.017 ng/mL (0.000-0.055) VA-Koy-C-Type Natriuretic Peptide 166 pg/mL (0-449) Total Protein 7.3 g/dL (6.4-8.2) Albumin 4.1 g/dL (3.4-5.0) Albumin/Globulin Ratio 1.3 (1.0-1.7) Lipase 117 U/L (73-393) Urine Collection Type Unknown Urine Color Yellow Urine Clarity Clear Urine pH 6.5 (<5.0-8.0) Urine Specific [place] 1.015 (1.000-1.030) Urine Protein Negative mg/dL (NEG-TRACE) Urine Glucose (UA) Negative mg/dL (NEG) Urine Ketones (Stick) Trace mg/dL (NEG) Urine Blood Negative (NEG) Urine Nitrite Negative (NEG) Urine Bilirubin Negative (NEG) Urine Urobilinogen Dipstick 0.2 mg/dL (0.2 mg/dL) Urine Leukocyte Esterase Negative (NEG) Urine RBC 0 /HPF (0-2) Urine WBC Occ /HPF (0-4) Urine Squamous Epithelial Cells Few /LPF Urine Bacteria 0 /HPF (0-FEW) Urine Opiates Screen Neg (NEG) Urine Methadone Screen Neg (NEG) Urine Barbiturates Neg (NEG) Urine Phencyclidine Screen Neg (NEG) Urine Amphetamine/Methamphetamine Neg (NEG) Urine Benzodiazepines Screen Neg (NEG) Urine Cocaine Screen Neg (NEG) Urine Cannabinoids Screen Neg (NEG) Urine Ethyl Alcohol Neg (NEG) Images: Images PROCEDURE: CT HEAD AND MAXILLOFACIAL WO PROCEDURE: CT CERVICAL SPINE WO CONTRAST IMPRESSION: 1. No acute intracranial finding or evidence of acute maxillary facial bone or cervical spine trauma. 2. Bilateral cerebral white changes, but be due to chronic small vessel disease. 3. Cerebral atrophy. 4. Degenerative change within the cervical spine, resulting in stenosis as described above. CXR IMPRESSION: 1. Correlate for chronic obstructive pulmonary disease. Mild interstitial lung disease versus scarring in the bases. Assessment/Plan Assessment/Plan Acute generalized weakness Prerenal azotemia Multiple falls Debilitation Leukopenia Anemia of chronic disease History of diabetes mellitus type 2 History of Parkinson's disease History of breast cancer Admit to medicine for further management Fall precautions Continue IV fluids PT OT Vitamin B12 Vitamin D level TSH Restart home Parkinson's medications Lovenox for DVT prophylaxis ADA diet Full code Discussed with RN and SW Disposition inpatient management as above Surrogate decision maker is daughter Justifications for Admission Other Justification MARKO HOLMAN MD Oct 29, 2020 14:15
[2020-10-29] MEDS ORDERED: SENNOSIDES 8.6 MG TABLET PO PRN (15:00)
[2020-10-29] MEDS ORDERED: DEXTROSE 50% 25 GM / 50ML DISP.SYRIN. IV PRN ×2 (15:00)
[2020-10-29] MEDS ORDERED: DOCUSATE SODIUM 100 MG CAPSULE. PO PRN (15:00)
[2020-10-29] MEDS ORDERED: ONDANSETRON PF 4 MG/2 ML VIAL. IVP PRN (15:00)
[2020-10-29] MEDS: IV NORMAL SALINE 1000ML BAG 1,000 ML IV SCH (15:00)
[2020-10-29] MEDS: CARBIDOPA/LEVODOPA 25/100MG TABLET PO SCH ×2 (16:57→21:10)
[2020-10-29] MEDS: INSULIN LISPRO 300 UNITS/3 ML VIAL. SQ SCH (17:00)
[2020-10-29] MEDS ORDERED: LABETALOL 20 MG/4 ML DISP.SYRIN. IVP PRN (17:15)
[2020-10-29 17:31] VITALS: BP 155/57
[2020-10-29 17:32] VITALS: BP 105/90
[2020-10-29 17:33] VITALS: BP 169/73
--- NOTE | 2020-10-29 17:36 | NUR ---
Patient arrived to room 436 at approximately 1710.
[2020-10-29 19:00] VITALS: BP 107/54
[2020-10-29 23:00] VITALS: BP 139/80
[2020-10-30] MEDS: IV NORMAL SALINE 1000ML BAG 1,000 ML IV SCH ×3 (02:16→21:33)
[2020-10-30 03:00] VITALS: BP 139/67
[2020-10-30 06:11] LABS: BASO % 1 % (0-3); EOS % 1 % (0-3); HEMATOCRIT 33.6 % (36.0-47.0); HEMOGLOBIN 10.9 g/dL (12.0-15.5); LYMPH # 0.5 x10^3/uL (1.0-4.8); LYMPH % 16 % (24-48); MEAN CORPUSCULAR HEMOGLOBIN 30 pg (25-35); MEAN CORPUSCULAR HGB CONC 32 g/dL (31-37); MEAN CORPUSCULAR VOLUME 93 fL (79-100); MONO # 0.4 x10^3/uL (0.0-1.1); MONO % 13 % (0-9); NEUT # 2.3 x10^3/uL (1.8-7.7); NEUT % 70 % (31-73); PLATELET COUNT 319 x10^3/uL (140-400); RED BLOOD COUNT 3.64 x10^6/uL (3.50-5.40); RED CELL DISTRIBUTION WIDTH 15.8 % (11.5-14.5); WHITE BLOOD COUNT 3.4 x10^3/uL (4.0-11.0)
[2020-10-30 06:28] LABS: CALCIUM 8.4 mg/dL (8.5-10.1); CREATININE 0.7 mg/dL (0.6-1.0); GFR 80.3; MAGNESIUM 1.8 mg/dL (1.8-2.4); PHOSPHORUS 2.9 mg/dL (2.6-4.7)
[2020-10-30 07:00] VITALS: BP 163/81
--- NOTE | 2020-10-30 07:43 | NUR ---
Patient screaming " help" uncontrollably. RN went to room. Patient found in bed, naked, attempting to take diaper off. Patient kicking and punching staff. Patient stating " You are a horse, get away from me. You are here to kill me. " Patient refusing to stay in bed or keep clothes on. Dr. vila. ethylene compressor operator notified.
--- NOTE | 2020-10-30 07:57 | PDOC ---
[employer] PROGRESS NOTE Date of Service DOS: DATE: 10/30/20 TIME: 07:55 Chief Complaint Chief Complaint Acute generalized weakness Prerenal azotemia Multiple falls Debilitation Leukopenia Anemia of chronic disease History of diabetes mellitus type 2 History of Parkinson's disease History of breast cancer Admit to medicine for further management Fall precautions Continue IV fluids PT OT Vitamin B12 Vitamin D level TSH Restart home Parkinson's medications Lovenox for DVT prophylaxis ADA diet Full code Discussed with RN and SW Disposition inpatient management as above Surrogate decision maker is daughter History of Present Illness History of Present Illness 80 year old female brought to the emergency department by EMS for new onset of generalized weakness. 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 Daughter also notes that the patient has a history of Parkinson's disease and has had 4 falls over the last week. States this is a mild increase for the patient at baseline. No reported fevers, chills, cough, back pain or other additional injury. 10/30/2020 Afebrile, no acute events overnight. Discussed with RN, patient currently standing in her room with significant agitation. Reportedly pulling at her IV. Gave as needed orders for agitation and will make inpatient for possible placement. Charts, labs, imaging reviewed, discussed with RN and manager social media. Vitals/I&O Vitals/I&O: Vital Signs Date Time Temp Pulse Resp B/P (MAP) Pulse Ox O2 Delivery O2 Flow Rate FiO2 10/30/20 07:00 98.8 89 18 163/81 (108) 92 Room Air 98.8 I & O 10/29/20 10/29/20 10/30/20 15:00 23:00 07:00 Intake Total 1000 ml 200 ml 200 ml Balance 1000 ml 200 ml 200 ml Physical Exam General: Alert, No acute distress Heart: Regular rate Lungs: Clear Abdomen: Soft Extremities: No clubbing, No cyanosis Skin: No rashes, No breakdown Labs Labs: Laboratory Tests Test 10/29/20 10:10 10/29/20 10:15 10/29/20 19:17 10/30/20 04:55 White Blood Count 2.8 x10^3/uL (4.0-11.0) Red Blood Count 3.53 x10^6/uL (3.50-5.40) Hemoglobin 10.9 g/dL (12.0-15.5) Hematocrit 32.3 % (36.0-47.0) Mean Corpuscular Volume 92 fL (79-100) Mean Corpuscular Hemoglobin 31 pg (25-35) Mean Corpuscular Hemoglobin Concent 34 g/dL (31-37) Red Cell Distribution Width 15.5 % (11.5-14.5) Platelet Count 292 x10^3/uL (140-400) Neutrophils (%) (Auto) 72 % (31-73) Lymphocytes (%) (Auto) 15 % (24-48) Monocytes (%) (Auto) 12 % (0-9) Eosinophils (%) (Auto) 1 % (0-3) Basophils (%) (Auto) 1 % (0-3) Neutrophils # (Auto) 2.0 x10^3/uL (1.8-7.7) Lymphocytes # (Auto) 0.4 x10^3/uL (1.0-4.8) Monocytes # (Auto) 0.3 x10^3/uL (0.0-1.1) Eosinophils # (Auto) 0.0 x10^3/uL (0.0-0.7) Basophils # (Auto) 0.0 x10^3/uL (0.0-0.2) D-Dimer (Sejal) 0.41 ug/mlFEU (0.00-0.50) Sodium Level 140 mmol/L (136-145) 142 mmol/L (136-145) Potassium Level 4.0 mmol/L (3.5-5.1) 4.0 mmol/L (3.5-5.1) Chloride Level 103 mmol/L (98-107) 106 mmol/L (98-107) Carbon Dioxide Level 28 mmol/L (21-32) 26 mmol/L (21-32) Anion Gap 9 (6-14) 10 (6-14) Blood Urea Nitrogen 24 mg/dL (7-20) 17 mg/dL (7-20) Creatinine 0.7 mg/dL (0.6-1.0) 0.7 mg/dL (0.6-1.0) Estimated GFR (Cockcroft-Gault) 80.3 80.3 BUN/Creatinine Ratio 34 (6-20) Glucose Level 160 mg/dL (70-99) 147 mg/dL (70-99) Calcium Level 9.1 mg/dL (8.5-10.1) 8.4 mg/dL (8.5-10.1) Magnesium Level 1.8 mg/dL (1.8-2.4) 1.8 mg/dL (1.8-2.4) Total Bilirubin 0.4 mg/dL (0.2-1.0) Aspartate Amino Transf (AST/SGOT) 22 U/L (15-37) Alanine Aminotransferase (ALT/SGPT) 8 U/L (14-59) Alkaline Phosphatase 45 U/L (46-116) Troponin I Quantitative < 0.017 ng/mL (0.000-0.055) AL-Uqi-X-Type Natriuretic Peptide 166 pg/mL (0-449) Total Protein 7.3 g/dL (6.4-8.2) Albumin 4.1 g/dL (3.4-5.0) Albumin/Globulin Ratio 1.3 (1.0-1.7) Lipase 117 U/L (73-393) Thyroid Stimulating Hormone (TSH) 2.229 uIU/mL (0.358-3.74) Urine Collection Type Unknown Urine Color Yellow Urine Clarity Clear Urine pH 6.5 (<5.0-8.0) Urine Specific [place] 1.015 (1.000-1.030) Urine Protein Negative mg/dL (NEG-TRACE) Urine Glucose (UA) Negative mg/dL (NEG) Urine Ketones (Stick) Trace mg/dL (NEG) Urine Blood Negative (NEG) Urine Nitrite Negative (NEG) Urine Bilirubin Negative (NEG) Urine Urobilinogen Dipstick 0.2 mg/dL (0.2 mg/dL) Urine Leukocyte Esterase Negative (NEG) Urine RBC 0 /HPF (0-2) Urine WBC Occ /HPF (0-4) Urine Squamous Epithelial Cells Few /LPF Urine Bacteria 0 /HPF (0-FEW) Urine Opiates Screen Neg (NEG) Urine Methadone Screen Neg (NEG) Urine Barbiturates Neg (NEG) Urine Phencyclidine Screen Neg (NEG) Urine Amphetamine/Methamphetamine Neg (NEG) Urine Benzodiazepines Screen Neg (NEG) Urine Cocaine Screen Neg (NEG) Urine Cannabinoids Screen Neg (NEG) Urine Ethyl Alcohol Neg (NEG) Glucose (Fingerstick) 211 mg/dL (70-99) Phosphorus Level 2.9 mg/dL (2.6-4.7) Test 10/30/20 05:00 10/30/20 07:06 White Blood Count 3.4 x10^3/uL (4.0-11.0) Red Blood Count 3.64 x10^6/uL (3.50-5.40) Hemoglobin 10.9 g/dL (12.0-15.5) Hematocrit 33.6 % (36.0-47.0) Mean Corpuscular Volume 93 fL (79-100) Mean Corpuscular Hemoglobin 30 pg (25-35) Mean Corpuscular Hemoglobin Concent 32 g/dL (31-37) Red Cell Distribution Width 15.8 % (11.5-14.5) Platelet Count 319 x10^3/uL (140-400) Neutrophils (%) (Auto) 70 % (31-73) Lymphocytes (%) (Auto) 16 % (24-48) Monocytes (%) (Auto) 13 % (0-9) Eosinophils (%) (Auto) 1 % (0-3) Basophils (%) (Auto) 1 % (0-3) Neutrophils # (Auto) 2.3 x10^3/uL (1.8-7.7) Lymphocytes # (Auto) 0.5 x10^3/uL (1.0-4.8) Monocytes # (Auto) 0.4 x10^3/uL (0.0-1.1) Eosinophils # (Auto) 0.0 x10^3/uL (0.0-0.7) Basophils # (Auto) 0.0 x10^3/uL (0.0-0.2) Glucose (Fingerstick) 181 mg/dL (70-99) Assessment and Plan Assessmemt and Plan Problems Medical Problems: (1) Ambulatory dysfunction Status: Acute Comment Review of Relevant I have reviewed the following items gulshan (where applicable) has been applied. Medications: Current Medications Medications (Trade) Dose Ordered Sig/Tristan Route PRN Reason Start Time Stop Time Status Last Admin Dose Admin Sodium Chloride 1,000 ml @ 1,000 mls/hr Q1H IV 10/29/20 10:00 10/29/20 10:59 DC 10/29/20 10:29 Morphine Sulfate (Morphine Sulfate) 4 mg PRN Q2HR PRN IV PAIN 10/29/20 14:15 10/30/20 14:14 10/30/20 03:27 Sodium Chloride 1,000 ml @ 100 mls/hr Q10H IV 10/29/20 15:00 10/30/20 02:16 Carbidopa/Levodopa (Sinemet 25/100) 1 tab TID PO 10/29/20 16:00 10/29/20 21:10 Amlodipine Besylate (Norvasc) 5 mg QHS PO 10/29/20 21:00 10/29/20 21:11 Justifications for Admission Other Justification Multiple falls KE SOMMERS MD Oct 30, 2020 07:57
[2020-10-30] MEDS: ASPIRIN CHEWABLE 81 MG TABLET. PO SCH (08:00)
[2020-10-30] MEDS ORDERED: ZIPRASIDONE IM 20 MG VIAL. IM ONE (08:00)
[2020-10-30] MEDS: INSULIN LISPRO 300 UNITS/3 ML VIAL. SQ SCH ×3 (08:00→17:00)
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
[2020-10-30] MEDS: ENOXAPARIN 40 MG/0.4 ML SYRINGE. SQ SCH ×2 (09:00→12:10)
[2020-10-30] MEDS: CARBIDOPA/LEVODOPA 25/100MG TABLET PO SCH ×3 (09:00→21:35)
[2020-10-30] MEDS: CYANOCOBALAMIN (VITAMIN B-12) 1,000 MCG TABLET. PO SCH (09:00)
--- NOTE | 2020-10-30 10:05 | NUR ---
Pt had covid PCR and rapid swab done. Taken to lab
[2020-10-30 10:29] VITALS: BP 157/79
--- NOTE | 2020-10-30 10:40 | NUR ---
SW following. Discussed with RN, pt from home with daughter, room air, regular diet, COVID pending for placement. PT/OT ordered. Pt agitated at times. Per family preservation caseworker wanting placement. SW awaiting therapy notes. Pt does not have medicaid so could potentially go to SNF and transition to LTC - medicaid pending if facility agreeable. SW will continue to follow.
[2020-10-30 14:23] VITALS: BP 133/65
--- NOTE | 2020-10-30 15:17 | NUR ---
Pt refused for assessment to be completed, was combative. Resp are even and non-labored, no s/sx of distress. Addendum: 10/30/20 at 1536 by PEDRO LOWERY LPN LPN Amended: Links added.
[2020-10-30 19:00] VITALS: BP 166/67
[2020-10-30] MEDS: QUEtiapine 25 MG TABLET. PO SCH (21:00)
[2020-10-30 23:00] VITALS: BP 148/76
[2020-10-31 03:00] VITALS: BP 160/70
[2020-10-31 07:00] VITALS: BP 171/73
[2020-10-31] MEDS: ASPIRIN CHEWABLE 81 MG TABLET. PO SCH (08:00)
[2020-10-31] MEDS: INSULIN LISPRO 300 UNITS/3 ML VIAL. SQ SCH ×3 (08:00→16:58)
[2020-10-31] MEDS: IV NORMAL SALINE 1000ML BAG 1,000 ML IV SCH ×2 (08:47→17:04)
[2020-10-31] MEDS: CARBIDOPA/LEVODOPA 25/100MG TABLET PO SCH ×3 (08:48→21:00)
[2020-10-31] MEDS: ENOXAPARIN 40 MG/0.4 ML SYRINGE. SQ SCH (08:48)
[2020-10-31] MEDS: CYANOCOBALAMIN (VITAMIN B-12) 1,000 MCG TABLET. PO SCH (08:51)
--- NOTE | 2020-10-31 08:52 | NUR ---
Pt. unable to swallow well, only able to swallow after Carbadopa dissolved. ASA and B12 held. Pt. found to be pocketing breakfast. Kept NPO at this time.
--- NOTE | 2020-10-31 10:01 | PDOC ---
PROGRESS NOTES Date of Service DATE: 10/31/20 TIME: 09:58 Assessment Problems Medical Problems: (1) Ambulatory dysfunction Status: Acute Parkinson's disease, has reached the stage of Lewy body dementia, no obvious metabolic derangement to explain the change except for some mild dehydration. Patient has basically given up, daughter says, has not been eating or taking her medications. History of transient ischemic attack with negative work-up Lumbar and cervical spondylosis Leukopenia, anemia Hypertension, gastroesophageal reflux disease, vitamin B12 deficiency (level here 270), diabetes Plan Hydrate I reduced the Sinemet dose as it can cause confusion, as long as she can swallow snf unit Subjective No complaints Objective Vital Signs Date Time Temp Pulse Resp B/P (MAP) Pulse Ox O2 Delivery O2 Flow Rate FiO2 10/31/20 07:00 98.0 79 18 171/73 (105) 95 Room Air 98.0 PHYSICAL EXAM Alert, does not know date or location, very soft voice PERRL. EOMI. CN: no focal findings. Muscle tone: Cogwheel rigidity Muscle strength: 4/5 DTR: 1+ Plantar reflex: Flexor Gait: not examined in bed. Sensory exam: no abnormal findings. No cerebellar signs elicited. Minimal rest tremor; bradykinesia, masked facies Review of Relevant I have reviewed the following items gulshan (where applicable) has been applied. Labs Laboratory Tests Test 10/29/20 10:10 10/29/20 10:15 10/29/20 19:17 10/30/20 04:55 White Blood Count 2.8 x10^3/uL (4.0-11.0) Red Blood Count 3.53 x10^6/uL (3.50-5.40) Hemoglobin 10.9 g/dL (12.0-15.5) Hematocrit 32.3 % (36.0-47.0) Mean Corpuscular Volume 92 fL (79-100) Mean Corpuscular Hemoglobin 31 pg (25-35) Mean Corpuscular Hemoglobin Concent 34 g/dL (31-37) Red Cell Distribution Width 15.5 % (11.5-14.5) Platelet Count 292 x10^3/uL (140-400) Neutrophils (%) (Auto) 72 % (31-73) Lymphocytes (%) (Auto) 15 % (24-48) Monocytes (%) (Auto) 12 % (0-9) Eosinophils (%) (Auto) 1 % (0-3) Basophils (%) (Auto) 1 % (0-3) Neutrophils # (Auto) 2.0 x10^3/uL (1.8-7.7) Lymphocytes # (Auto) 0.4 x10^3/uL (1.0-4.8) Monocytes # (Auto) 0.3 x10^3/uL (0.0-1.1) Eosinophils # (Auto) 0.0 x10^3/uL (0.0-0.7) Basophils # (Auto) 0.0 x10^3/uL (0.0-0.2) D-Dimer (Sejal) 0.41 ug/mlFEU (0.00-0.50) Sodium Level 140 mmol/L (136-145) 142 mmol/L (136-145) Potassium Level 4.0 mmol/L (3.5-5.1) 4.0 mmol/L (3.5-5.1) Chloride Level 103 mmol/L (98-107) 106 mmol/L (98-107) Carbon Dioxide Level 28 mmol/L (21-32) 26 mmol/L (21-32) Anion Gap 9 (6-14) 10 (6-14) Blood Urea Nitrogen 24 mg/dL (7-20) 17 mg/dL (7-20) Creatinine 0.7 mg/dL (0.6-1.0) 0.7 mg/dL (0.6-1.0) Estimated GFR (Cockcroft-Gault) 80.3 80.3 BUN/Creatinine Ratio 34 (6-20) Glucose Level 160 mg/dL (70-99) 147 mg/dL (70-99) Calcium Level 9.1 mg/dL (8.5-10.1) 8.4 mg/dL (8.5-10.1) Magnesium Level 1.8 mg/dL (1.8-2.4) 1.8 mg/dL (1.8-2.4) Total Bilirubin 0.4 mg/dL (0.2-1.0) Aspartate Amino Transf (AST/SGOT) 22 U/L (15-37) Alanine Aminotransferase (ALT/SGPT) 8 U/L (14-59) Alkaline Phosphatase 45 U/L (46-116) Troponin I Quantitative < 0.017 ng/mL (0.000-0.055) DE-Jmj-U-Type Natriuretic Peptide 166 pg/mL (0-449) Total Protein 7.3 g/dL (6.4-8.2) Albumin 4.1 g/dL (3.4-5.0) Albumin/Globulin Ratio 1.3 (1.0-1.7) Lipase 117 U/L (73-393) Vitamin B12 Level 270 pg/mL (247-911) Thyroid Stimulating Hormone (TSH) 2.229 uIU/mL (0.358-3.74) Urine Collection Type Unknown Urine Color Yellow Urine Clarity Clear Urine pH 6.5 (<5.0-8.0) Urine Specific [place] 1.015 (1.000-1.030) Urine Protein Negative mg/dL (NEG-TRACE) Urine Glucose (UA) Negative mg/dL (NEG) Urine Ketones (Stick) Trace mg/dL (NEG) Urine Blood Negative (NEG) Urine Nitrite Negative (NEG) Urine Bilirubin Negative (NEG) Urine Urobilinogen Dipstick 0.2 mg/dL (0.2 mg/dL) Urine Leukocyte Esterase Negative (NEG) Urine RBC 0 /HPF (0-2) Urine WBC Occ /HPF (0-4) Urine Squamous Epithelial Cells Few /LPF Urine Bacteria 0 /HPF (0-FEW) Urine Opiates Screen Neg (NEG) Urine Methadone Screen Neg (NEG) Urine Barbiturates Neg (NEG) Urine Phencyclidine Screen Neg (NEG) Urine Amphetamine/Methamphetamine Neg (NEG) Urine Benzodiazepines Screen Neg (NEG) Urine Cocaine Screen Neg (NEG) Urine Cannabinoids Screen Neg (NEG) Urine Ethyl Alcohol Neg (NEG) Glucose (Fingerstick) 211 mg/dL (70-99) Phosphorus Level 2.9 mg/dL (2.6-4.7) Test 10/30/20 05:00 10/30/20 07:06 10/30/20 09:50 10/30/20 16:14 White Blood Count 3.4 x10^3/uL (4.0-11.0) Red Blood Count 3.64 x10^6/uL (3.50-5.40) Hemoglobin 10.9 g/dL (12.0-15.5) Hematocrit 33.6 % (36.0-47.0) Mean Corpuscular Volume 93 fL (79-100) Mean Corpuscular Hemoglobin 30 pg (25-35) Mean Corpuscular Hemoglobin Concent 32 g/dL (31-37) Red Cell Distribution Width 15.8 % (11.5-14.5) Platelet Count 319 x10^3/uL (140-400) Neutrophils (%) (Auto) 70 % (31-73) Lymphocytes (%) (Auto) 16 % (24-48) Monocytes (%) (Auto) 13 % (0-9) Eosinophils (%) (Auto) 1 % (0-3) Basophils (%) (Auto) 1 % (0-3) Neutrophils # (Auto) 2.3 x10^3/uL (1.8-7.7) Lymphocytes # (Auto) 0.5 x10^3/uL (1.0-4.8) Monocytes # (Auto) 0.4 x10^3/uL (0.0-1.1) Eosinophils # (Auto) 0.0 x10^3/uL (0.0-0.7) Basophils # (Auto) 0.0 x10^3/uL (0.0-0.2) Glucose (Fingerstick) 181 mg/dL (70-99) 181 mg/dL (70-99) SARS-CoV-2 RNA (RUPA) Negative (Negative) SARS-CoV-2 Antigen (Rapid) Negative (NEGATIVE) Test 10/30/20 20:46 10/31/20 07:27 Glucose (Fingerstick) 162 mg/dL (70-99) 154 mg/dL (70-99) Laboratory Tests Test 10/30/20 16:14 10/30/20 20:46 10/31/20 07:27 Glucose (Fingerstick) 181 mg/dL (70-99) 162 mg/dL (70-99) 154 mg/dL (70-99) Medications Current Medications Sodium Chloride 1,000 ml @ 1,000 mls/hr Q1H IV Last administered on 10/29/20at 10:29; Start 10/29/20 at 10:00; Stop 10/29/20 at 10:59; Status DC Ondansetron HCl (Zofran) 4 mg PRN Q8HRS PRN IV NAUSEA/VOMITING; Start 10/29/20 at 14:15; Stop 10/30/20 at 14:14; Status DC Morphine Sulfate (Morphine Sulfate) 4 mg PRN Q2HR PRN IV PAIN Last administered on 10/30/20at 03:27; Start 10/29/20 at 14:15; Stop 10/30/20 at 14:14; Status DC Sennosides (Senna) 17.2 mg PRN BID PRN PO CONSTIPATION; Start 10/29/20 at 15:00 Docusate Sodium (Colace) 100 mg PRN DAILY PRN PO HARD STOOLS; Start 10/29/20 at 15:00 Ondansetron HCl (Zofran) 4 mg PRN Q6HRS PRN IVP NAUSEA/VOMITING; Start 10/29/20 at 15:00 Dextrose (Dextrose 50%-Water Syringe) 12.5 gm PRN Q15MIN PRN IV SEE COMMENTS; Start 10/29/20 at 15:00; Status Cancel Sodium Chloride 1,000 ml @ 100 mls/hr Q10H IV Last administered on 10/31/20at 08:47; Start 10/29/20 at 15:00 Acetaminophen (Tylenol) 650 mg PRN Q4HRS PRN PO TEMP OVER 100.4F OR MILD PAIN; Start 10/29/20 at 15:00 Enoxaparin Sodium (Lovenox 40mg Syringe) 40 mg Q24H SQ Last administered on 10/31/20at 08:48; Start 10/30/20 at 09:00 Aspirin (Aspirin Chewable) 81 mg DAILYWBKFT PO ; Start 10/30/20 at 08:00 Carbidopa/Levodopa (Sinemet 25/100) 1 tab TID PO Last administered on 10/31/20at 08:48; Start 10/29/20 at 16:00 Cyanocobalamin (Vitamin B-12) 1,000 mcg DAILY PO ; Start 10/30/20 at 09:00 Insulin Human Lispro (HumaLOG) 0-7 UNITS TIDWMEALS SQ ; Start 10/29/20 at 17:00 Dextrose (Dextrose 50%-Water Syringe) 12.5 gm PRN Q15MIN PRN IV SEE COMMENTS; Start 10/29/20 at 15:00 Labetalol HCl (Normodyne Iv Push) 10 mg PRN Q4HRS PRN IVP HYPERTENSION; Start 10/29/20 at 17:15 Amlodipine Besylate (Norvasc) 5 mg QHS PO Last administered on 10/30/20at 21:34; Start 10/29/20 at 21:00 Quetiapine Fumarate (SEROquel) 25 mg QHS PO ; Start 10/30/20 at 21:00 Ziprasidone (Geodon Im) 10 mg 1X ONCE IM Last administered on 10/30/20at 08:10; Start 10/30/20 at 08:00; Stop 10/30/20 at 08:01; Status DC Active Scripts Active Aspirin 81 Mg Tab.chew 81 Mg PO DAILYWBKFT 30 Days Atorvastatin Calcium 20 Mg Tablet 20 Mg PO QHS 30 Days Cipro (Ciprofloxacin Hcl) 250 Mg Tablet 250 Mg PO BID 3 Days Humalog (Insulin Lispro) 100 Unit/1 Ml Insuln.pen 0-5 Unit SQ TIDACHC 30 Days Reported Pioglitazone Hcl 30 Mg Tablet 1 Tab PO DAILY 90 Days Sinemet 25-100 Mg Tablet (Carbidopa/Levodopa) 1 Each Tablet 1 Tab PO TID Tylenol Extra Strength (Acetaminophen) 500 Mg Tablet 500 Mg PO BID Metformin Hcl 500 Mg Tablet 500 Mg 2TABS PO BID Vitamin B-12 (Cyanocobalamin (Vitamin B-12)) 1,000 Mcg Tablet 1,000 Mcg PO DAILY Glucosamine & Chondroitin Cap (Glucosa Boss 2KCL/Chondroitin Boss) 1 Each Capsule 1 Each PO DAILY Vitamin D (Cholecalciferol (Vitamin D3)) 2,000 Unit Capsule 1 Cap PO DAILY Alendronate Sodium 70 Mg Tablet 70 Mg PO WEEKLY ON FRIDAY Multiple Vitamin (Multivitamin With Minerals) 1 Each Tablet 1 Each PO DAILY Vitals/I & O Vital Sign - Last 24 Hours 10/30/20 10/30/20 10/30/20 10/30/20 10:29 14:23 19:00 19:40 Temp 98.1 97.8 98.3 98.1 97.8 98.3 Pulse 93 91 94 Resp 18 18 18 B/P (MAP) 157/79 (105) 133/65 (87) 166/67 (100) Pulse Ox 90 95 95 O2 Delivery Room Air Room Air Room Air Room Air 10/30/20 10/30/20 10/31/20 10/31/20 21:34 23:00 03:00 07:00 Temp 98.9 99.5 98.0 98.9 99.5 98.0 Pulse 94 66 77 79 Resp 18 18 18 B/P (MAP) 166/67 148/76 (100) 160/70 (100) 171/73 (105) Pulse Ox 97 93 95 O2 Delivery Room Air Room Air Room Air Justicifation of Admission Dx: Justifications for Admission: Justification of Admission Dx: Yes LILIA DUNN MD Oct 31, 2020 10:01
[2020-10-31 11:00] VITALS: BP 130/71
--- NOTE | 2020-10-31 11:06 | NUR ---
SW following. Discussed with RN, pt from home with daughter, room air, regular diet, COVID-19 negative. PT/OT recommending SNF. ARPITA spoke with pt's daughter, Sue - she does not want SNF at this time, asked if her mother is at the end of her life because Dr. Hidalgo had said something along those lines. ARPITA discussed hospice with Sue - she stated she is not ready to give up on her mom yet. Sue would like pt to return home with [facility], who they have used before. ARPITA faxed referral to [facility]. RN and Dr. Allen notified. ARPITA will continue to follow. Addendum: 10/31/20 at 1451 by KULDEEP PALM Pt accepted with [facility]. Awaiting confirmation of discharge.
--- NOTE | 2020-10-31 11:09 | PDOC ---
[employer] PROGRESS NOTE Date of Service DOS: DATE: 10/31/20 TIME: 11:06 Chief Complaint Chief Complaint Acute generalized weakness Prerenal azotemia Multiple falls Debilitation Leukopenia Anemia of chronic disease History of diabetes mellitus type 2 History of Parkinson's disease History of breast cancer Admit to medicine for further management Fall precautions Continue IV fluids PT OT Vitamin B12 Vitamin D level TSH Restart home Parkinson's medications Lovenox for DVT prophylaxis ADA diet Full code Discussed with RN and SW Disposition inpatient management as above Surrogate decision maker is daughter History of Present Illness History of Present Illness 80 year old female brought to the emergency department by EMS for new onset of generalized weakness. Patient lives at home with a parking lot manager daughter who noted that the patient had increasing weakness this morning and normally is able to ambulate with a walker to the recliner but this time was unable to bear any weight or lower extremities. Daughter also notes that the patient has a history of Parkinson's disease and has had 4 falls over the last week. States this is a mild increase for the patient at baseline. No reported fevers, chills, cough, back pain or other additional injury. 10/31/2020 No acute events overnight, afebrile. Per RN, some concern for dysphagia she appears to be "pocketing" her food. Will consult ST. Per neurology, Sinemet dose was reduced due to dysphagia and confusion. Needs SNU. 10/30/2020 Afebrile, no acute events overnight. Discussed with RN, patient currently standing in her room with significant agitation. Reportedly pulling at her IV. Gave as needed orders for agitation and will make inpatient for possible placement. Charts, labs, imaging reviewed, discussed with RN and social studies department chair. Vitals/I&O Vitals/I&O: Vital Signs Date Time Temp Pulse Resp B/P (MAP) Pulse Ox O2 Delivery O2 Flow Rate FiO2 10/31/20 07:40 Room Air 10/31/20 07:00 98.0 79 18 171/73 (105) 95 98.0 Physical Exam General: Alert, No acute distress Heart: Regular rate Lungs: Clear Abdomen: Soft Extremities: No clubbing, No cyanosis Skin: No rashes, No breakdown Labs Labs: Laboratory Tests Test 10/30/20 16:14 10/30/20 20:46 10/31/20 07:27 Glucose (Fingerstick) 181 mg/dL (70-99) 162 mg/dL (70-99) 154 mg/dL (70-99) Assessment and Plan Assessmemt and Plan Problems Medical Problems: (1) Ambulatory dysfunction Status: Acute Comment Review of Relevant I have reviewed the following items gulshan (where applicable) has been applied. Justifications for Admission Other Justification Multiple falls KE SOMMERS MD Oct 31, 2020 11:09
--- NOTE | 2020-10-31 11:18 | NUR ---
Bedside Swallow Evaluation completed. Please refer to full report in intervention section for additional information. Impressions: Moderate oropharyngeal dysphagia w/ pt demonstrating overt s/s aspiration w/ trials of thin liquids. Decreased oral control,mastication and transit of solids results in significant oral residue and pocketing. Pt appears at low risk of aspiration and most efficient w/ dysphagia I diet w/ honey thick liquids. Recommendations: Dysphagia I diet w/ honey thick liquids. Crush meds in puree or honey thick liquids. ST f/u for dysphagia. Dietary consult w/ concerns if pt will be able to maintain adequate intake. If supplementation is recommended puree consistency would be recommended.
[2020-10-31 15:00] VITALS: BP 151/70
[2020-10-31] MEDS: ACETAMINOPHEN 325 MG TABLET. PO PRN (18:29)
[2020-10-31 19:00] VITALS: BP 93/67
[2020-10-31] MEDS: QUEtiapine 25 MG TABLET. PO SCH (21:06)
[2020-10-31 23:00] VITALS: BP 101/72
[2020-11-01] MEDS: ACETAMINOPHEN 325 MG TABLET. PO PRN (02:21)
[2020-11-01] MEDS: IV NORMAL SALINE 1000ML BAG 1,000 ML IV SCH ×3 (02:59→23:00)
[2020-11-01 03:00] VITALS: BP 148/74
[2020-11-01 07:00] VITALS: BP 143/72
[2020-11-01] MEDS: INSULIN LISPRO 300 UNITS/3 ML VIAL. SQ SCH ×3 (08:00→17:00)
--- NOTE | 2020-11-01 09:01 | PDOC ---
PROGRESS NOTES Date of Service: DATE: 11/01/20 TIME: 09:01 Chief Complaint Chief Complaint IMPRESSION Acute generalized weakness Prerenal azotemia Multiple falls Debilitation Leukopenia Anemia of chronic disease History of diabetes mellitus type 2 History of Parkinson's disease , The patient has more recently been seeing Dr. Smith at for Parkinson's History of breast cancer Admit to medicine for further management Fall precautions Continue IV fluids PT OT Vitamin B12 Vitamin D level TSH Restart home Parkinson's medications Lovenox for DVT prophylaxis ADA diet Full code Discussed with RN and SW Disposition inpatient management as above Surrogate decision maker is daughter Home with home health Niece is coming in to help DAUGHTER REFUSED snf or LTC TODAY D/W RN D/C PLANNING 35 MIN * Max Assistance Bed Mobility Comments * Asst with trunk and LE's using draw sheet; Max x2 to scoot up in bed. Transfer Assistance Required * Max Assistance * Two-Person Assistance Transfer Type * Sit to Stand Transfer Assistive Device * Roller Walker Transfer Comments * Max asst x 2 for sit to stand with RW use; step up by PT and OT necessary; B tight heel cords noted. 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 Pt was not able to weight shift enough to take a side step to head of bed. Level of alertness varies. History of Present Illness History of Present Illness 80 year old female brought to the emergency department by EMS for new onset of generalized weakness. Patient lives at home with a residential property manager daughter who noted that the patient had increasing weakness this morning and normally is able to ambulate with a walker to the recliner but this time was unable to bear any weight or lower extremities. Daughter also notes that the patient has a history of Parkinson's disease and has had 4 falls over the last week. States this is a mild increase for the patient at baseline. No reported fevers, chills, cough, back pain or other additional injury. 11/01/2020 No acute events overnight, afebrile. Per RN, some concern for dysphagia she appears to be "pocketing" her food. Will consult ST. Per neurology, Sinemet dose was reduced due to dysphagia and confusion. Needs SNU. POOR ORAL INTAKE ONLY 400 CC ORAL INTAKE YESTERDAY 10/31/2020 No acute events overnight, afebrile. Per RN, some concern for dysphagia she appears to be "pocketing" her food. Will consult ST. Per neurology, Sinemet dose was reduced due to dysphagia and confusion. Needs SNU. 10/30/2020 Afebrile, no acute events overnight. Discussed with RN, patient currently standing in her room with significant agitation. Reportedly pulling at her IV. Gave as needed orders for agitation and will make inpatient for possible placement. Charts, labs, imaging reviewed, discussed with RN and social economist. Vitals Vitals Vital Signs Date Time Temp Pulse Resp B/P (MAP) Pulse Ox O2 Delivery O2 Flow Rate FiO2 11/01/20 07:00 97.6 67 18 143/72 (95) 97 Room Air 97.6 Physical Exam Physical Exam CONFUSED, PLEASANT DOES NOT LIKE TASTE OF FOOD HERE General: Alert, Cooperative, No acute distress Heart: Regular rate, Normal S1 Lungs: Clear Abdomen: Normal bowel sounds, Soft, No tenderness Extremities: No clubbing, No cyanosis Skin: No rashes, No breakdown Labs LABS EXAM: CHEST ONE VIEW. HISTORY: Chest pain. COMPARISON: 09/04/2019. FINDINGS: A frontal view of the chest is obtained. There are no confluent infiltrates. Mild interstitial opacities in the bases are stable and likely reflects scarring. The lungs are expanded to the 12th posterior ribs. There is no pneumothorax or pleural effusion. The heart is at the upper limits of normal size given this projection. A surgical clip is noted in the right axilla. There are atherosclerotic calcifications of the aorta. IMPRESSION: 1. Correlate for chronic obstructive pulmonary disease. Mild interstitial lung disease versus scarring in the bases. Electronically signed by: Juan Carlos Bloom MD (10/29/2020 10:29 AM) [facility] DICTATED and SIGNED BY: ROSSI BLOOM MD DATE: 10/29/20 [id number] EXAM: Head CT without contrast; maxillofacial bone CT without contrast; cervical spine CT without contrast. HISTORY: Trauma. TECHNIQUE: Computed tomographic images of the head, maxillofacial bones and cervical spine were obtained without contrast. *One or more of the following individualized dose reduction techniques were utilized for this examination: 1. Automated exposure control. 2. Adjustment of the mA and/or kV according to patient size. 3. Use of iterative reconstruction technique. COMPARISON: 06/03/2020. FINDINGS: Head: There is no hemorrhage. There is no mass effect or midline shift. There is no hydrocephalus. There is cerebral atrophy. There is decreased attenuation within the cerebral white matter due to chronic small vessel disease. No calvarial lesion is seen. The mastoid air cells are clear. Maxillofacial bones: No displaced fracture is seen. The temporomandibular joints are intact. There is mild ethmoid and left maxillary sinus mucosal thickening. There is mild nasal septal deviation. The ostiomeatal units are patent. Cervical spine: There is cervical curvature due to thoracic scoliosis. There is degenerative endplate remodeling with disc space narrowing and osteophytosis throughout the cervical spine. There is calcification within several disc spaces. There is multilevel facet and uncovertebral arthropathy. No acute frac ture is seen. There is biapical pleural parenchymal scarring. There is no pneumothorax. The combination of degenerative changes results in mild left foraminal stenosis at C3-C4, moderate left foraminal stenosis at C4-C5, and mild right foraminal stenosis at C6-C7. IMPRESSION: 1. No acute intracranial finding or evidence of acute maxillary facial bone or cervical spine trauma. 2. Bilateral cerebral white changes, but be due to chronic small vessel disease. 3. Cerebral atrophy. 4. Degenerative change within the cervical spine, resulting in stenosis as described above. Electronically signed by: Ester Moy MD (10/29/2020 1:25 PM) [id number] DICTATED and SIGNED BY: ESTER MOY MD DATE: 10/29/20 [id number] Bedside Swallow Evaluation completed. Please refer to full report in intervention section for additional information. Impressions: Moderate oropharyngeal dysphagia w/ pt demonstrating overt s/s aspiration w/ trials of thin liquids. Decreased oral control,mastication and transit of solids results in significant oral residue and pocketing. Pt appears at low risk of aspiration and most efficient w/ dysphagia I diet w/ honey thick liquids. Recommendations: Dysphagia I diet w/ honey thick liquids. Crush meds in puree or honey thick liquids. ST f/u for dysphagia. Dietary consult w/ concerns if pt will be able to maintain adequate intake. If supplementation is recommended puree consistency would be recommended. Patient condition at conclusion of therapy * Pt in chair * Personal alarm on * Call light in reach * Phone in reach * PtIn no apparent distress * Pt denies further needs * Visitor with patient Communicated Patient Care With (Name, Title) * Henok, RN; LESTER Fernández; marie Rogers Goal 1 - Bed Mobility Assistance Required * Stand-by Assistance Goal 1 Assessment * Appropriate - Continue Goal 2 - Transfers Assistance Required * Stand-by Assistance Goal 2 - Transfer Type * Sit to Stand Goal 2 Assessment * Appropriate - Continue Goal 3 - Ambulation Assistance Required * Stand-by Assistance Goal 3 - Ambulation Distance * 100' Goal 3 - Ambulation Device * Roller Walker Goal 3 Assessment * Appropriate - Continue Treatment Plan * Therapeutic Exercise * Bed Mobility Training * Transfer training * Gait Training * Dynamic Balance Training Frequency of Treatment Expected * 6 visits/week Duration of Treatment Expected * 2 weeks Discharge Recommendations * Assisted Unit Discharge Recommendation - DME * Rolling Walker needed * in order to complete ADLs * and ambulation safely Discharge Recommendation Comments * TBD Laboratory Tests Test 10/31/20 11:38 10/31/20 16:50 10/31/20 20:44 11/01/20 08:01 Glucose (Fingerstick) 160 mg/dL (70-99) 142 mg/dL (70-99) 195 mg/dL (70-99) 155 mg/dL (70-99) Assessment and Plan Assessmemt and Plan Problems Medical Problems: (1) Ambulatory dysfunction Status: Acute Comment Review of Relevant I have reviewed the following items gulshan (where applicable) has been applied. Labs Laboratory Tests Test 10/30/20 09:50 10/30/20 16:14 10/30/20 20:46 10/31/20 07:27 SARS-CoV-2 RNA (RUPA) Negative (Negative) SARS-CoV-2 Antigen (Rapid) Negative (NEGATIVE) Glucose (Fingerstick) 181 mg/dL (70-99) 162 mg/dL (70-99) 154 mg/dL (70-99) Test 10/31/20 11:38 10/31/20 16:50 10/31/20 20:44 11/01/20 08:01 Glucose (Fingerstick) 160 mg/dL (70-99) 142 mg/dL (70-99) 195 mg/dL (70-99) 155 mg/dL (70-99) Laboratory Tests Test 10/31/20 11:38 10/31/20 16:50 10/31/20 20:44 11/01/20 08:01 Glucose (Fingerstick) 160 mg/dL (70-99) 142 mg/dL (70-99) 195 mg/dL (70-99) 155 mg/dL (70-99) Medications Current Medications Sodium Chloride 1,000 ml @ 1,000 mls/hr Q1H IV Last administered on 10/29/20at 10:29; Start 10/29/20 at 10:00; Stop 10/29/20 at 10:59; Status DC Ondansetron HCl (Zofran) 4 mg PRN Q8HRS PRN IV NAUSEA/VOMITING; Start 10/29/20 at 14:15; Stop 10/30/20 at 14:14; Status DC Morphine Sulfate (Morphine Sulfate) 4 mg PRN Q2HR PRN IV PAIN Last administered on 10/30/20at 03:27; Start 10/29/20 at 14:15; Stop 10/30/20 at 14:14; Status DC Sennosides (Senna) 17.2 mg PRN BID PRN PO CONSTIPATION; Start 10/29/20 at 15:00 Docusate Sodium (Colace) 100 mg PRN DAILY PRN PO HARD STOOLS; Start 10/29/20 at 15:00 Ondansetron HCl (Zofran) 4 mg PRN Q6HRS PRN IVP NAUSEA/VOMITING; Start 10/29/20 at 15:00 Dextrose (Dextrose 50%-Water Syringe) 12.5 gm PRN Q15MIN PRN IV SEE COMMENTS; Start 10/29/20 at 15:00; Status Cancel Sodium Chloride 1,000 ml @ 100 mls/hr Q10H IV Last administered on 11/01/20at 02:59; Start 10/29/20 at 15:00 Acetaminophen (Tylenol) 650 mg PRN Q4HRS PRN PO TEMP OVER 100.4F OR MILD PAIN Last administered on 11/01/20at 02:21; Start 10/29/20 at 15:00 Enoxaparin Sodium (Lovenox 40mg Syringe) 40 mg Q24H SQ Last administered on 10/31/20at 08:48; Start 10/30/20 at 09:00 Aspirin (Aspirin Chewable) 81 mg DAILYWBKFT PO ; Start 10/30/20 at 08:00 Carbidopa/Levodopa (Sinemet 25/100) 1 tab TID PO Last administered on 10/31/20at 21:00; Start 10/29/20 at 16:00 Cyanocobalamin (Vitamin B-12) 1,000 mcg DAILY PO ; Start 10/30/20 at 09:00 Insulin Human Lispro (HumaLOG) 0-7 UNITS TIDWMEALS SQ Last administered on 10/31/20at 11:54; Start 10/29/20 at 17:00 Dextrose (Dextrose 50%-Water Syringe) 12.5 gm PRN Q15MIN PRN IV SEE COMMENTS; Start 10/29/20 at 15:00 Labetalol HCl (Normodyne Iv Push) 10 mg PRN Q4HRS PRN IVP HYPERTENSION; Start 10/29/20 at 17:15 Amlodipine Besylate (Norvasc) 5 mg QHS PO Last administered on 10/31/20at 21:10; Start 10/29/20 at 21:00 Quetiapine Fumarate (SEROquel) 25 mg QHS PO Last administered on 10/31/20at 21:06; Start 10/30/20 at 21:00 Ziprasidone (Geodon Im) 10 mg 1X ONCE IM Last administered on 10/30/20at 08:10; Start 10/30/20 at 08:00; Stop 10/30/20 at 08:01; Status DC Active Scripts Active Aspirin 81 Mg Tab.chew 81 Mg PO DAILYWBKFT 30 Days Atorvastatin Calcium 20 Mg Tablet 20 Mg PO QHS 30 Days Cipro (Ciprofloxacin Hcl) 250 Mg Tablet 250 Mg PO BID 3 Days Humalog (Insulin Lispro) 100 Unit/1 Ml Insuln.pen 0-5 Unit SQ TIDACHC 30 Days Reported Pioglitazone Hcl 30 Mg Tablet 1 Tab PO DAILY 90 Days Sinemet 25-100 Mg Tablet (Carbidopa/Levodopa) 1 Each Tablet 1 Tab PO TID Tylenol Extra Strength (Acetaminophen) 500 Mg Tablet 500 Mg PO BID Metformin Hcl 500 Mg Tablet 500 Mg 2TABS PO BID Vitamin B-12 (Cyanocobalamin (Vitamin B-12)) 1,000 Mcg Tablet 1,000 Mcg PO DAILY Glucosamine & Chondroitin Cap (Glucosa Boss 2KCL/Chondroitin Boss) 1 Each Capsule 1 Each PO DAILY Vitamin D (Cholecalciferol (Vitamin D3)) 2,000 Unit Capsule 1 Cap PO DAILY Alendronate Sodium 70 Mg Tablet 70 Mg PO WEEKLY ON FRIDAY Multiple Vitamin (Multivitamin With Minerals) 1 Each Tablet 1 Each PO DAILY Vitals/I & O Vital Sign - Last 24 Hours 10/31/20 10/31/20 10/31/20 10/31/20 11:00 15:00 19:00 19:30 Temp 98.0 98.6 97.6 98.0 98.6 97.6 Pulse 78 77 66 Resp 16 16 20 B/P (MAP) 130/71 (90) 151/70 (97) 93/67 (76) Pulse Ox 94 95 94 O2 Delivery Room Air Room Air 10/31/20 10/31/20 11/01/20 11/01/20 21:10 23:00 03:00 07:00 Temp 97.6 97.6 97.6 97.6 Pulse 72 66 66 67 Resp 20 16 18 B/P (MAP) 109/62 101/72 (82) 148/74 (98) 143/72 (95) Pulse Ox 93 97 97 O2 Delivery Room Air Room Air Room Air Intake and Output 10/31/20 10/31/20 11/01/20 15:00 23:00 07:00 Intake Total 50 ml 0 ml Balance 50 ml 0 ml Justicifation of Admission Dx: Justifications for Admission: Justification of Admission Dx: Yes HUONG EDGE MD Nov 01, 2020 09:01
[2020-11-01] MEDS: ENOXAPARIN 40 MG/0.4 ML SYRINGE. SQ SCH (10:36)
[2020-11-01] MEDS: CARBIDOPA/LEVODOPA 25/100MG TABLET PO SCH ×3 (10:36→20:58)
[2020-11-01] MEDS: ASPIRIN CHEWABLE 81 MG TABLET. PO SCH (10:36)
[2020-11-01] MEDS: CYANOCOBALAMIN (VITAMIN B-12) 1,000 MCG TABLET. PO SCH (10:37)
--- NOTE | 2020-11-01 10:50 | PDOC ---
PROGRESS NOTES Date of Service DATE: 11/01/20 TIME: 10:48 Assessment Problems Medical Problems: (1) Ambulatory dysfunction Status: Acute Parkinson's disease, has reached the stage of Lewy body dementia, no obvious metabolic derangement to explain the change except for some mild dehydration. Patient has basically given up, daughter says, has not been eating or taking her medications. But she has perked up in the hospital History of transient ischemic attack with negative work-up Lumbar and cervical spondylosis Leukopenia, anemia Hypertension, gastroesophageal reflux disease, vitamin B12 deficiency (level here 270), diabetes Plan Hydrate I reduced the Sinemet dose as it can cause confusion, as long as she can swallow Home with home health Niece is coming in to help Discussed with daughter Subjective No complaints Objective Vital Signs Date Time Temp Pulse Resp B/P (MAP) Pulse Ox O2 Delivery O2 Flow Rate FiO2 11/01/20 07:00 97.6 67 18 143/72 (95) 97 Room Air 97.6 Intake and Output 11/01/20 07:00 Intake Total 50 ml Balance 50 ml Intake Oral 50 ml # Voids 4 # Bowel Movements 3 PHYSICAL EXAM Alert, does not know date or location, very soft voice Ate breakfast PERRL. EOMI. CN: no focal findings. Muscle tone: Cogwheel rigidity Muscle strength: 4/5 DTR: 1+ Plantar reflex: Flexor Gait: not examined in bed. Sensory exam: no abnormal findings. No cerebellar signs elicited. Minimal rest tremor; bradykinesia, masked facies Review of Relevant I have reviewed the following items gulshan (where applicable) has been applied. Labs Laboratory Tests Test 10/30/20 16:14 10/30/20 20:46 10/31/20 07:27 10/31/20 11:38 Glucose (Fingerstick) 181 mg/dL (70-99) 162 mg/dL (70-99) 154 mg/dL (70-99) 160 mg/dL (70-99) Test 10/31/20 16:50 10/31/20 20:44 11/01/20 08:01 Glucose (Fingerstick) 142 mg/dL (70-99) 195 mg/dL (70-99) 155 mg/dL (70-99) Laboratory Tests Test 10/31/20 11:38 10/31/20 16:50 10/31/20 20:44 11/01/20 08:01 Glucose (Fingerstick) 160 mg/dL (70-99) 142 mg/dL (70-99) 195 mg/dL (70-99) 155 mg/dL (70-99) Medications Current Medications Sodium Chloride 1,000 ml @ 1,000 mls/hr Q1H IV Last administered on 10/29/20at 10:29; Start 10/29/20 at 10:00; Stop 10/29/20 at 10:59; Status DC Ondansetron HCl (Zofran) 4 mg PRN Q8HRS PRN IV NAUSEA/VOMITING; Start 10/29/20 at 14:15; Stop 10/30/20 at 14:14; Status DC Morphine Sulfate (Morphine Sulfate) 4 mg PRN Q2HR PRN IV PAIN Last administered on 10/30/20at 03:27; Start 10/29/20 at 14:15; Stop 10/30/20 at 14:14; Status DC Sennosides (Senna) 17.2 mg PRN BID PRN PO CONSTIPATION; Start 10/29/20 at 15:00 Docusate Sodium (Colace) 100 mg PRN DAILY PRN PO HARD STOOLS; Start 10/29/20 at 15:00 Ondansetron HCl (Zofran) 4 mg PRN Q6HRS PRN IVP NAUSEA/VOMITING; Start 10/29/20 at 15:00 Dextrose (Dextrose 50%-Water Syringe) 12.5 gm PRN Q15MIN PRN IV SEE COMMENTS; Start 10/29/20 at 15:00; Status Cancel Sodium Chloride 1,000 ml @ 100 mls/hr Q10H IV Last administered on 11/01/20at 02:59; Start 10/29/20 at 15:00 Acetaminophen (Tylenol) 650 mg PRN Q4HRS PRN PO TEMP OVER 100.4F OR MILD PAIN Last administered on 11/01/20at 02:21; Start 10/29/20 at 15:00 Enoxaparin Sodium (Lovenox 40mg Syringe) 40 mg Q24H SQ Last administered on 11/01/20at 10:36; Start 10/30/20 at 09:00 Aspirin (Aspirin Chewable) 81 mg DAILYWBKFT PO Last administered on 11/01/20at 10:36; Start 10/30/20 at 08:00 Carbidopa/Levodopa (Sinemet 25/100) 1 tab TID PO Last administered on 11/01/20at 10:36; Start 10/29/20 at 16:00 Cyanocobalamin (Vitamin B-12) 1,000 mcg DAILY PO Last administered on 11/01/20at 10:37; Start 10/30/20 at 09:00 Insulin Human Lispro (HumaLOG) 0-7 UNITS TIDWMEALS SQ Last administered on 10/31/20at 11:54; Start 10/29/20 at 17:00 Dextrose (Dextrose 50%-Water Syringe) 12.5 gm PRN Q15MIN PRN IV SEE COMMENTS; Start 10/29/20 at 15:00 Labetalol HCl (Normodyne Iv Push) 10 mg PRN Q4HRS PRN IVP HYPERTENSION; Start 10/29/20 at 17:15 Amlodipine Besylate (Norvasc) 5 mg QHS PO Last administered on 10/31/20at 21:10; Start 10/29/20 at 21:00 Quetiapine Fumarate (SEROquel) 25 mg QHS PO Last administered on 10/31/20at 21:06; Start 10/30/20 at 21:00 Ziprasidone (Geodon Im) 10 mg 1X ONCE IM Last administered on 10/30/20at 08:10; Start 10/30/20 at 08:00; Stop 10/30/20 at 08:01; Status DC Active Scripts Active Aspirin 81 Mg Tab.chew 81 Mg PO DAILYWBKFT 30 Days Atorvastatin Calcium 20 Mg Tablet 20 Mg PO QHS 30 Days Cipro (Ciprofloxacin Hcl) 250 Mg Tablet 250 Mg PO BID 3 Days Humalog (Insulin Lispro) 100 Unit/1 Ml Insuln.pen 0-5 Unit SQ TIDACHC 30 Days Reported Pioglitazone Hcl 30 Mg Tablet 1 Tab PO DAILY 90 Days Sinemet 25-100 Mg Tablet (Carbidopa/Levodopa) 1 Each Tablet 1 Tab PO TID Tylenol Extra Strength (Acetaminophen) 500 Mg Tablet 500 Mg PO BID Metformin Hcl 500 Mg Tablet 500 Mg 2TABS PO BID Vitamin B-12 (Cyanocobalamin (Vitamin B-12)) 1,000 Mcg Tablet 1,000 Mcg PO DAILY Glucosamine & Chondroitin Cap (Glucosa Boss 2KCL/Chondroitin Boss) 1 Each Capsule 1 Each PO DAILY Vitamin D (Cholecalciferol (Vitamin D3)) 2,000 Unit Capsule 1 Cap PO DAILY Alendronate Sodium 70 Mg Tablet 70 Mg PO WEEKLY ON FRIDAY Multiple Vitamin (Multivitamin With Minerals) 1 Each Tablet 1 Each PO DAILY Vitals/I & O Vital Sign - Last 24 Hours 10/31/20 10/31/20 10/31/20 10/31/20 11:00 15:00 19:00 19:30 Temp 98.0 98.6 97.6 98.0 98.6 97.6 Pulse 78 77 66 Resp 16 16 20 B/P (MAP) 130/71 (90) 151/70 (97) 93/67 (76) Pulse Ox 94 95 94 O2 Delivery Room Air Room Air 10/31/20 10/31/20 11/01/20 11/01/20 21:10 23:00 03:00 07:00 Temp 97.6 97.6 97.6 97.6 Pulse 72 66 66 67 Resp 20 16 18 B/P (MAP) 109/62 101/72 (82) 148/74 (98) 143/72 (95) Pulse Ox 93 97 97 O2 Delivery Room Air Room Air Room Air Intake and Output 10/31/20 10/31/20 11/01/20 15:00 23:00 07:00 Intake Total 50 ml 0 ml Balance 50 ml 0 ml Justicifation of Admission Dx: Justifications for Admission: Justification of Admission Dx: Yes LILIA DUNN MD Nov 01, 2020 10:50
[2020-11-01 11:00] VITALS: BP 134/67
--- NOTE | 2020-11-01 11:24 | NUR ---
SW following. Discussed with RN, pt from home with daughter, room air, dysphagia I, COVID-19 negative. Pt accepted with [facility] - awaiting confirmation of discharge. Pt's daughter's niece is going to help daughter and patient at home. ARPITA will continue to follow. Addendum: 11/01/20 at 1644 by KULDEEP PALM Discharge orders were faxed to [facility]. Daughter now stating pt can't really walk and is not sure if she can take her home, will need transport up the stairs but wanted to see pt work with PT to see if she can move around the home. Daughter only wants [facility], however [facility] can no longer meet pt's needs. PT working with pt at this time. ARPITA requested pt's daughter tell RN if she is going to take pt home or have her go to a facility. RN provided with [facility] sheet for transport home if pt's daughter is taking pt home. If pt goes home, pt is a high risk readmission due to pt's daughter declining recommendations and inability to cope at home. ARPITA will continue to follow.
--- NOTE | 2020-11-01 11:52 | PDOC3 ---
Discharge Summary Date of Admission: Oct 29, 2020 Date of Discharge: Nov 01, 2020 Follow-Up: 1-2 days Admitting Diagnosis comment: HOSPITAL COURSE HPI History of Present Illness History of Present Illness 80 year old female brought to the emergency department by EMS for new onset of generalized weakness. Patient lives at home with a slime plant operator daughter who noted that the patient had increasing weakness this morning and normally is able to ambulate with a walker to the recliner but this time was unable to bear any weight or lower extremities. Daughter also notes that the patient has a history of Parkinson's disease and has had 4 falls over the last week. States this is a mild increase for the patient at baseline. No reported fevers, chills, cough, back pain or other additional injury. d/c meds SEE MAR PROCEDURES CT HEAD, CT CERVICAL SPINE ===== dx condition fair, high risk of re-admit in 30 days Consults neurology Complications none discharge dx Acute generalized weakness Prerenal azotemia Multiple falls Debilitation Leukopenia Anemia of chronic disease History of diabetes mellitus type 2 History of Parkinson's disease , The patient has more recently been seeing Dr. Smith at for Parkinson's History of breast cancer Admit to medicine for further management Fall precautions Continue IV fluids PT OT Vitamin B12 Vitamin D level TSH Restart home Parkinson's medications Lovenox for DVT prophylaxis ADA diet Full code Discussed with RN and SW Disposition inpatient management as above Surrogate decision maker is daughter Home with home health Niece is coming in to help DAUGHTER REFUSED snf or LTC TODAY D/W RN D/C PLANNING 35 MIN * Max Assistance Bed Mobility Comments * Asst with trunk and LE's using draw sheet; Max x2 to scoot up in bed. Transfer Assistance Required * Max Assistance * Two-Person Assistance Transfer Type * Sit to Stand Transfer Assistive Device * Roller Walker Transfer Comments * Max asst x 2 for sit to stand with RW use; step up by PT and OT necessary; B tight heel cords noted. pt tends to business analyst project manager a flexed posture; v/cs for gluteal mm contraction. Pt was not able to weight shift enough to take a side step to head of bed. Level of alertness varies. History of Present Illness History of Present Illness 80 year old female brought to the emergency department by EMS for new onset of generalized weakness. Patient lives at home with a slime plant operator daughter who noted that the patient had increasing weakness this morning and normally is able to ambulate with a walker to the recliner but this time was unable to bear any weight or lower extremities. Daughter also notes that the patient has a history of Parkinson's disease and has had 4 falls over the last week. States this is a mild increase for the patient at baseline. No reported fevers, chills, cough, back pain or other additional injury. 11/01/2020 No acute events overnight, afebrile. Per RN, some concern for dysphagia she appears to be "pocketing" her food. Will consult ST. Per neurology, Sinemet dose was reduced due to dysphagia and confusion. Needs SNU. POOR ORAL INTAKE ONLY 400 CC ORAL INTAKE YESTERDAY 10/31/2020 No acute events overnight, afebrile. Per RN, some concern for dysphagia she appears to be "pocketing" her food. Will consult ST. Per neurology, Sinemet dose was reduced due to dysphagia and confusion. Needs SNU. 10/30/2020 Afebrile, no acute events overnight. Discussed with RN, patient currently standing in her room with significant agitation. Reportedly pulling at her IV. Gave as needed orders for agitation and will make inpatient for possible placement. Charts, labs, imaging reviewed, discussed with RN and social media assistant. Vitals Vitals Vital Signs Date Time Temp Pulse Resp B/P (MAP) Pulse Ox O2 Delivery O2 Flow Rate FiO2 11/01/20 07:00 97.6 67 18 143/72 (95) 97 Room Air 97.6 Physical Exam Physical Exam CONFUSED, PLEASANT DOES NOT LIKE TASTE OF FOOD HERE General: Alert, Cooperative, No acute distress Heart: Regular rate, Normal S1 Lungs: Clear Abdomen: Normal bowel sounds, Soft, No tenderness Extremities: No clubbing, No cyanosis Skin: No rashes, No breakdown Labs LABS EXAM: CHEST ONE VIEW. HISTORY: Chest pain. COMPARISON: 09/04/2019. FINDINGS: A frontal view of the chest is obtained. There are no confluent infiltrates. Mild interstitial opacities in the bases are stable and likely reflects scarring. The lungs are expanded to the 12th posterior ribs. There is no pneumothorax or pleural effusion. The heart is at the upper limits of normal size given this projection. A surgical clip is noted in the right axilla. There are atherosclerotic calcifications of the aorta. IMPRESSION: 1. Correlate for chronic obstructive pulmonary disease. Mild interstitial lung disease versus scarring in the bases. Electronically signed by: Juan Carlos Bloom MD (10/29/2020 10:29 AM) [facility] DICTATED and SIGNED BY: ROSSI BLOOM MD DATE: 10/29/20 [id number] EXAM: Head CT without contrast; maxillofacial bone CT without contrast; cervical spine CT without contrast. HISTORY: Trauma. TECHNIQUE: Computed tomographic images of the head, maxillofacial bones and cervical spine were obtained without contrast. *One or more of the following individualized dose reduction techniques were utilized for this examination: 1. Automated exposure control. 2. Adjustment of the mA and/or kV according to patient size. 3. Use of iterative reconstruction technique. COMPARISON: 06/03/2020. FINDINGS: Head: There is no hemorrhage. There is no mass effect or midline shift. There is no hydrocephalus. There is cerebral atrophy. There is decreased attenuation within the cerebral white matter due to chronic small vessel disease. No calvarial lesion is seen. The mastoid air cells are clear. Maxillofacial bones: No displaced fracture is seen. The temporomandibular joints are intact. There is mild ethmoid and left maxillary sinus mucosal thickening. There is mild nasal septal deviation. The ostiomeatal units are patent. Cervical spine: There is cervical curvature due to thoracic scoliosis. There is degenerative endplate remodeling with disc space narrowing and osteophytosis throughout the cervical spine. There is calcification within several disc spaces. There is multilevel facet and uncovertebral arthropathy. No acute fracture is seen. There is biapical pleural parenchymal scarring. There is no pneumothorax. The combination of degenerative changes results in mild left foraminal stenosis at C3-C4, moderate left foraminal stenosis at C4-C5, and mild right foraminal stenosis at C6-C7. IMPRESSION: 1. No acute intracranial finding or evidence of acute maxillary facial bone or cervical spine trauma. 2. Bilateral cerebral white changes, but be due to chronic small vessel disease. 3. Cerebral atrophy. 4. Degenerative change within the cervical spine, resulting in stenosis as described above. Electronically signed by: Ester Moy MD (10/29/2020 1:25 PM) [id number] DICTATED and SIGNED BY: ESTER MOY MD DATE: 10/29/20 [id number] 0 Bedside Swallow Evaluation completed. Please refer to full report in intervention section for additional information. Impressions: Moderate oropharyngeal dysphagia w/ pt demonstrating overt s/s aspiration w/ trials of thin liquids. Decreased oral control,mastication and transit of solids results in significant oral residue and pocketing. Pt appears at low risk of aspiration and most efficient w/ dysphagia I diet w/ honey thick liquids. Recommendations: Dysphagia I diet w/ honey thick liquids. Crush meds in puree or honey thick liquids. ST f/u for dysphagia. Dietary consult w/ concerns if pt will be able to maintain adequate intake. If supplementation is recommended puree consistency would be recommended. Patient condition at conclusion of therapy * Pt in chair * Personal alarm on * Call light in reach * Phone in reach * PtIn no apparent distress * Pt denies further needs * Visitor with patient Communicated Patient Care With (Name, Title) * Henok RN; Jolene OT; marie Rogers Goal 1 - Bed Mobility Assistance Required * Stand-by Assistance Goal 1 Assessment * Appropriate - Continue Goal 2 - Transfers Assistance Required * Stand-by Assistance Goal 2 - Transfer Type * Sit to Stand Goal 2 Assessment * Appropriate - Continue Goal 3 - Ambulation Assistance Required * Stand-by Assistance Goal 3 - Ambulation Distance * 100' Goal 3 - Ambulation Device * Roller Walker Goal 3 Assessment * Appropriate - Continue Treatment Plan * Therapeutic Exercise * Bed Mobility Training * Transfer training * Gait Training * Dynamic Balance Training Frequency of Treatment Expected * 6 visits/week Duration of Treatment Expected * 2 weeks Discharge Recommendations * [facility] Unit Discharge Recommendation - DME * Rolling Walker needed * in order to complete ADLs * and ambulation safely Discharge Recommendation Comments * TBD Laboratory Tests Test 10/31/20 11:38 10/31/20 16:50 10/31/20 20:44 11/01/20 08:01 Glucose (Fingerstick) 160 mg/dL (70-99) 142 mg/dL (70-99) 195 mg/dL (70-99) 155 mg/dL (70-99) Assessment and Plan Assessmemt and Plan Problems Medical Problems: (1) Ambulatory dysfunction Status: Acute FINAL DIAGNOSIS Problems Medical Problems: (1) Ambulatory dysfunction Status: Acute Brief Hospital Course Ms. Johnson is a 80 old [sex] who presented with [ GAIT INSTABILITY] CONDITION AT DISCHARGE: Improved Discharge Medications Current Medications Sodium Chloride 1,000 ml @ 1,000 mls/hr Q1H IV Last administered on 10/29/20at 10:29; Start 10/29/20 at 10:00; Stop 10/29/20 at 10:59; Status DC Ondansetron HCl (Zofran) 4 mg PRN Q8HRS PRN IV NAUSEA/VOMITING; Start 10/29/20 at 14:15; Stop 10/30/20 at 14:14; Status DC Morphine Sulfate (Morphine Sulfate) 4 mg PRN Q2HR PRN IV PAIN Last administered on 10/30/20at 03:27; Start 10/29/20 at 14:15; Stop 10/30/20 at 14:14; Status DC Sennosides (Senna) 17.2 mg PRN BID PRN PO CONSTIPATION; Start 10/29/20 at 15:00 Docusate Sodium (Colace) 100 mg PRN DAILY PRN PO HARD STOOLS; Start 10/29/20 at 15:00 Ondansetron HCl (Zofran) 4 mg PRN Q6HRS PRN IVP NAUSEA/VOMITING; Start 10/29/20 at 15:00 Dextrose (Dextrose 50%-Water Syringe) 12.5 gm PRN Q15MIN PRN IV SEE COMMENTS; Start 10/29/20 at 15:00; Status Cancel Sodium Chloride 1,000 ml @ 100 mls/hr Q10H IV Last administered on 11/01/20at 02:59; Start 10/29/20 at 15:00 Acetaminophen (Tylenol) 650 mg PRN Q4HRS PRN PO TEMP OVER 100.4F OR MILD PAIN Last administered on 11/01/20at 02:21; Start 10/29/20 at 15:00 Enoxaparin Sodium (Lovenox 40mg Syringe) 40 mg Q24H SQ Last administered on 11/01/20at 10:36; Start 10/30/20 at 09:00 Aspirin (Aspirin Chewable) 81 mg DAILYWBKFT PO Last administered on 11/01/20 10:36; Start 10/30/20 at 08:00 Carbidopa/Levodopa (Sinemet 25/100) 1 tab TID PO Last administered on 4/28/21at 10:36; Start 10/29/20 at 16:00 Cyanocobalamin (Vitamin B-12) 1,000 mcg DAILY PO Last administered on 11/01/20at 10:37; Start 10/30/20 at 09:00 Insulin Human Lispro (HumaLOG) 0-7 UNITS TIDWMEALS SQ Last administered on 10/31/20at 11:54; Start 10/29/20 at 17:00 Dextrose (Dextrose 50%-Water Syringe) 12.5 gm PRN Q15MIN PRN IV SEE COMMENTS; Start 10/29/20 at 15:00 Labetalol HCl (Normodyne Iv Push) 10 mg PRN Q4HRS PRN IVP HYPERTENSION; Start 10/29/20 at 17:15 Amlodipine Besylate (Norvasc) 5 mg QHS PO Last administered on 10/31/20at 21:10; Start 10/29/20 at 21:00 Quetiapine Fumarate (SEROquel) 25 mg QHS PO Last administered on 10/31/20at 21:06; Start 10/30/20 at 21:00 Ziprasidone (Geodon Im) 10 mg 1X ONCE IM Last administered on 10/30/20at 08:10; Start 10/30/20 at 08:00; Stop 10/30/20 at 08:01; Status DC Active Scripts Active Aspirin 81 Mg Tab.chew 81 Mg PO DAILYWBKFT 30 Days Atorvastatin Calcium 20 Mg Tablet 20 Mg PO QHS 30 Days Cipro (Ciprofloxacin Hcl) 250 Mg Tablet 250 Mg PO BID 3 Days Humalog (Insulin Lispro) 100 Unit/1 Ml Insuln.pen 0-5 Unit SQ TIDACHC 30 Days Reported Pioglitazone Hcl 30 Mg Tablet 1 Tab PO DAILY 90 Days Sinemet 25-100 Mg Tablet (Carbidopa/Levodopa) 1 Each Tablet 1 Tab PO TID Tylenol Extra Strength (Acetaminophen) 500 Mg Tablet 500 Mg PO BID Metformin Hcl 500 Mg Tablet 500 Mg 2TABS PO BID Vitamin B-12 (Cyanocobalamin (Vitamin B-12)) 1,000 Mcg Tablet 1,000 Mcg PO DAILY Glucosamine & Chondroitin Cap (Glucosa Boss 2KCL/Chondroitin Boss) 1 Each Capsule 1 Each PO DAILY Vitamin D (Cholecalciferol (Vitamin D3)) 2,000 Unit Capsule 1 Cap PO DAILY Alendronate Sodium 70 Mg Tablet 70 Mg PO WEEKLY ON FRIDAY Multiple Vitamin (Multivitamin With Minerals) 1 Each Tablet 1 Each PO DAILY Vital Signs Vital Signs Date Time Temp Pulse Resp B/P (MAP) Pulse Ox O2 Delivery O2 Flow Rate FiO2 11/01/20 07:00 97.6 67 18 143/72 (95) 97 Room Air 97.6 Labs Laboratory Tests Test 10/30/20 16:14 10/30/20 20:46 10/31/20 07:27 10/31/20 11:38 Glucose (Fingerstick) 181 mg/dL (70-99) 162 mg/dL (70-99) 154 mg/dL (70-99) 160 mg/dL (70-99) Test 10/31/20 16:50 10/31/20 20:44 11/01/20 08:01 Glucose (Fingerstick) 142 mg/dL (70-99) 195 mg/dL (70-99) 155 mg/dL (70-99) Laboratory Tests Test 10/31/20 16:50 10/31/20 20:44 11/01/20 08:01 Glucose (Fingerstick) 142 mg/dL (70-99) 195 mg/dL (70-99) 155 mg/dL (70-99) Allergies Allergies Coded Allergies Type Severity Reaction Last Updated Verified amoxicillin Allergy Intermediate Nausea and Vomiting/diarrhea 09/05/19 Yes clavulanic acid Allergy Intermediate Nausea and Vomiting/diarrhea 09/05/19 Yes tramadol Adverse Reaction Intermediate vomiting and diarrhea 02/26/17 Yes Disposition/Orders: D/C to Home w/ HH Justicifation of Admission Dx: Justifications for Admission: Justification of Admission Dx: Yes HUONG EDGE MD Nov 01, 2020 11:51
[2020-11-01] MEDS ORDERED: INSU100V35 SQ (11:54)
[2020-11-01] MEDS ORDERED: DOCU-153 PO (11:54)
[2020-11-01] MEDS ORDERED: QUET25TA PO (11:54)
[2020-11-01] MEDS ORDERED: AMLO-186 PO (11:54)
--- NOTE | 2020-11-01 11:56 | SNU/HH DC ---
DISCHARGE WITH HOME HEALTH DISCHARGE INFORMATION: Final Diagnosis: Problems Medical Problems: (1) Ambulatory dysfunction Status: Acute Condition on Discharge: Guarded CODE STATUS: Code Status: Full HOME HEALTH: Face to Face: I certify this patient is under my care and that I, or a nurse practitioner or physician's assistant real estate manager working with me, had a face to face encounter that meets the physician face to face encounter requirements with this patient on []. 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 For: Community Resources Pt Meets Homebound Status: Extreme weakness w/ amb., Frequent falls w/ injury, Limited distance walking, Poor cognition POST DISCHARGE ORDERS: Activity Instructions for Disc: Activity as tolerated Weight Bearing Status after Di: No restrictions DIET AFTER DISCHARGE: ADA Wound/Incision Care: Do not change dressing CHECKS AFTER DISCHARGE: Checks after discharge: Check blood press - daily, Check blood sugar, ac/hs, Check your Temp as needed FOLLOW-UP: PCP to follow Home Health: pcp in 5-10 days DC TO SNF LABS: CBC, CMP within 2 weeks of discharge TREATMENT/EQUIPMENT ORDERS: Adaptive Equipment Issued: None, Front wheeled walker, Wheelchair CERTIFICATION STATEMENT: Certification Statement: Certification Statement: Based on the above finding, I certify that this patient is confined to the home and needs intermittent residential care, physical therapy and/or speech therapy, or continues to need occupational therapy.~ This patient is under my care, and I have initiated the establishment of the plan of care.~ This patient will be followed by myself or a community physician who will periodically review the plan of care. Home Meds Active Scripts Insulin Lispro (Admelog) 100 Unit/1 Ml Vial, 0 UNITS SQ TIDWMEALS for see sliding scale for 30 Days, #2 EACH Prov:HUONG EDGE MD 11/01/20 Docusate Sodium (DOK) 100 Mg Capsule, 100 MG PO PRN DAILY PRN for HARD STOOLS for 30 Days, #60 CAP Prov:HUONG EDGE MD 11/01/20 Quetiapine Fumarate (QUETIAPINE FUMARATE) 25 Mg Tablet, 25 MG PO QHS for mood for 30 Days, #30 TAB Prov:HUONG EDGE MD 11/01/20 Amlodipine Besylate (AMLODIPINE BESYLATE) 5 Mg Tablet, 5 MG PO QHS for hypertension for 30 Days, #30 TAB Prov:HUONG EDGE MD 11/01/20 Aspirin (ASPIRIN) 81 Mg Tab.chew, 81 MG PO DAILYWBKFT for stroke prevention for 30 Days, #30 TAB.CHEW Prov:MARKO HOLMAN MD 06/07/20 Atorvastatin Calcium (ATORVASTATIN CALCIUM) 20 Mg Tablet, 20 MG PO QHS for stroke prevention for 30 Days, #30 TAB Prov:MARKO HOLMAN MD 06/07/20 Reported Medications Carbidopa/Levodopa (SINEMET 25-100 MG TABLET) 1 Each Tablet, 1 TAB PO TID for parkinsons 11/23/18 Acetaminophen (TYLENOL EXTRA STRENGTH) 500 Mg Tablet, 500 MG PO BID for arthritis 11/23/18 Cyanocobalamin (Vitamin B-12) (VITAMIN B-12) 1,000 Mcg Tablet, 1000 MCG PO DAILY for supplement 05/22/17 Glucosa Boss 2KCL/Chondroitin Boss (GLUCOSAMINE & CHONDROITIN CAP) 1 Each Capsule, 1 EACH PO DAILY for arthritis 05/22/17 Cholecalciferol (Vitamin D3) (VITAMIN D) 2,000 Unit Capsule, 1 CAP PO DAILY for supplement 02/24/17 Multivitamin With Minerals (MULTIPLE VITAMIN) 1 Each Tablet, 1 EACH PO DAILY for supplement 02/24/17 Discontinued Reported Medications Pioglitazone Hcl (PIOGLITAZONE HCL) 30 Mg Tablet, 1 TAB PO DAILY for DM2 for 90 Days, #90 09/07/19 Metformin Hcl (METFORMIN HCL) 500 Mg Tablet, 500 MG 2tabs po BID for diabetes 11/24/17 Alendronate Sodium (ALENDRONATE SODIUM) 70 Mg Tablet, 70 MG PO weekly on friday for osteoporosis 02/24/17 Discontinued Scripts Ciprofloxacin Hcl (CIPRO) 250 Mg Tablet, 250 MG PO BID for uti for 3 Days, #6 TAB Prov:MARKO HOLMAN MD 06/07/20 Insulin Lispro (HUMALOG) 100 Unit/1 Ml Insuln.pen, 0-5 UNIT SQ TIDACHC for DM2 for 30 Days, #1 SYR Prov:LURDES ARRIETA MD 09/07/19 HUONG EDGE MD Nov 01, 2020 11:56
[2020-11-01 15:00] VITALS: BP 135/68
[2020-11-01 19:00] VITALS: BP 154/68
[2020-11-01] MEDS: QUEtiapine 25 MG TABLET. PO SCH (20:58)
[2020-11-01 23:00] VITALS: BP 138/59
[2020-11-02 03:00] VITALS: BP 169/79
[2020-11-02 07:15] VITALS: BP 171/83
--- NOTE | 2020-11-02 08:51 | PDOC ---
PROGRESS NOTES Date of Service: DATE: 11/02/20 TIME: 08:50 Chief Complaint Chief Complaint IMPRESSION Acute generalized weakness Prerenal azotemia Multiple falls Debilitation Leukopenia Anemia of chronic disease History of diabetes mellitus type 2 History of Parkinson's disease , The patient has more recently been seeing Dr. Smith at for Parkinson's History of breast cancer Admit to medicine for further management Fall precautions Continue IV fluids PT OT Vitamin B12 Vitamin D level TSH Restart home Parkinson's medications Lovenox for DVT prophylaxis ADA diet Full code Discussed with RN and SW Disposition inpatient management as above Surrogate decision maker is daughter Home with home health Niece is coming in to help DAUGHTER REFUSED snf or LTC TODAY D/W RN D/C PLANNING 35 MIN * Max Assistance Bed Mobility Comments * Asst with trunk and LE's using draw sheet; Max x2 to scoot up in bed. Transfer Assistance Required * Max Assistance * Two-Person Assistance Transfer Type * Sit to Stand Transfer Assistive Device * Roller Walker Transfer Comments * Max asst x 2 for sit to stand with RW use; step up by PT and OT necessary; B tight heel cords noted. pt tends to senior field engineer a flexed posture; v/cs for gluteal mm contraction. Pt was not able to weight shift enough to take a side step to head of bed. Level of alertness varies. History of Present Illness History of Present Illness 80 year old female brought to the emergency department by EMS for new onset of generalized weakness. Patient lives at home with a retail branch manager daughter who noted that the patient had increasing weakness this morning and normally is able to ambulate with a walker to the recliner but this time was unable to bear any weight or lower extremities. Daughter also notes that the patient has a history of Parkinson's disease and has had 4 falls over the last week. States this is a mild increase for the patient at baseline. No reported fevers, chills, cough, back pain or other additional injury. 11/01/2020 No acute events overnight, afebrile. Per RN, some concern for dysphagia she appears to be "pocketing" her food. Will consult ST. Per neurology, Sinemet dose was reduced due to dysphagia and confusion. Needs SNU. POOR ORAL INTAKE ONLY 400 CC ORAL INTAKE YESTERDAY 10/31/2020 No acute events overnight, afebrile. Per RN, some concern for dysphagia she appears to be "pocketing" her food. Will consult ST. Per neurology, Sinemet dose was reduced due to dysphagia and confusion. Needs SNU. 10/30/2020 Afebrile, no acute events overnight. Discussed with RN, patient currently standing in her room with significant agitation. Reportedly pulling at her IV. Gave as needed orders for agitation and will make inpatient for possible placement. Charts, labs, imaging reviewed, discussed with RN and social services assistant. Vitals Vitals Vital Signs Date Time Temp Pulse Resp B/P (MAP) Pulse Ox O2 Delivery O2 Flow Rate FiO2 11/02/20 07:15 98.1 78 18 171/83 (112) 95 Room Air 98.1 Physical Exam Physical Exam CONFUSED, PLEASANT DOES NOT LIKE TASTE OF FOOD HERE General: Alert, Cooperative, No acute distress Heart: Regular rate, Normal S1 Lungs: Clear Abdomen: Normal bowel sounds, Soft, No tenderness Extremities: No clubbing, No cyanosis Skin: No rashes, No breakdown Labs LABS Laboratory Tests Test 11/01/20 12:05 11/01/20 16:58 11/01/20 21:17 11/02/20 07:17 Glucose (Fingerstick) 182 mg/dL (70-99) 161 mg/dL (70-99) 238 mg/dL (70-99) 175 mg/dL (70-99) Assessment and Plan Assessmemt and Plan Problems Medical Problems: (1) Ambulatory dysfunction Status: Acute Comment Review of Relevant I have reviewed the following items gulshan (where applicable) has been applied. Labs Laboratory Tests Test 10/31/20 11:38 10/31/20 16:50 10/31/20 20:44 11/01/20 08:01 Glucose (Fingerstick) 160 mg/dL (70-99) 142 mg/dL (70-99) 195 mg/dL (70-99) 155 mg/dL (70-99) Test 11/01/20 12:05 11/01/20 16:58 11/01/20 21:17 11/02/20 07:17 Glucose (Fingerstick) 182 mg/dL (70-99) 161 mg/dL (70-99) 238 mg/dL (70-99) 175 mg/dL (70-99) Laboratory Tests Test 11/01/20 12:05 11/01/20 16:58 11/01/20 21:17 11/02/20 07:17 Glucose (Fingerstick) 182 mg/dL (70-99) 161 mg/dL (70-99) 238 mg/dL (70-99) 175 mg/dL (70-99) Medications Current Medications Sodium Chloride 1,000 ml @ 1,000 mls/hr Q1H IV Last administered on 10/29/20at 10:29; Start 10/29/20 at 10:00; Stop 10/29/20 at 10:59; Status DC Ondansetron HCl (Zofran) 4 mg PRN Q8HRS PRN IV NAUSEA/VOMITING; Start 10/29/20 at 14:15; Stop 10/30/20 at 14:14; Status DC Morphine Sulfate (Morphine Sulfate) 4 mg PRN Q2HR PRN IV PAIN Last administered on 10/30/20at 03:27; Start 10/29/20 at 14:15; Stop 10/30/20 at 14:14; Status DC Sennosides (Senna) 17.2 mg PRN BID PRN PO CONSTIPATION; Start 10/29/20 at 15:00 Docusate Sodium (Colace) 100 mg PRN DAILY PRN PO HARD STOOLS; Start 10/29/20 at 15:00 Ondansetron HCl (Zofran) 4 mg PRN Q6HRS PRN IVP NAUSEA/VOMITING; Start 10/29/20 at 15:00 Dextrose (Dextrose 50%-Water Syringe) 12.5 gm PRN Q15MIN PRN IV SEE COMMENTS; Start 10/29/20 at 15:00; Status Cancel Sodium Chloride 1,000 ml @ 100 mls/hr Q10H IV Last administered on 11/01/20at 02:59; Start 10/29/20 at 15:00 Acetaminophen (Tylenol) 650 mg PRN Q4HRS PRN PO TEMP OVER 100.4F OR MILD PAIN Last administered on 11/01/20at 02:21; Start 10/29/20 at 15:00 Enoxaparin Sodium (Lovenox 40mg Syringe) 40 mg Q24H SQ Last administered on 11/01/20at 10:36; Start 10/30/20 at 09:00 Aspirin (Aspirin Chewable) 81 mg DAILYWBKFT PO Last administered on 11/01/20 10:36; Start 10/30/20 at 08:00 Carbidopa/Levodopa (Sinemet 25/100) 1 tab TID PO Last administered on 11/01/20at 20:58; Start 10/29/20 at 16:00 Cyanocobalamin (Vitamin B-12) 1,000 mcg DAILY PO Last administered on 11/01/20 10:37; Start 10/30/20 at 09:00 Insulin Human Lispro (HumaLOG) 0-7 UNITS TIDWMEALS SQ Last administered on 10/31/20at 11:54; Start 10/29/20 at 17:00 Dextrose (Dextrose 50%-Water Syringe) 12.5 gm PRN Q15MIN PRN IV SEE COMMENTS; Start 10/29/20 at 15:00 Labetalol HCl (Normodyne Iv Push) 10 mg PRN Q4HRS PRN IVP HYPERTENSION Last administered on 11/02/20 04:07; Start 10/29/20 at 17:15 Amlodipine Besylate (Norvasc) 5 mg QHS PO Last administered on 11/01/20at 20:59; Start 10/29/20 at 21:00 Quetiapine Fumarate (SEROquel) 25 mg QHS PO Last administered on 11/01/20 20:58; Start 10/30/20 at 21:00 Ziprasidone (Geodon Im) 10 mg 1X ONCE IM Last administered on 10/30/20at 08:10; Start 10/30/20 at 08:00; Stop 10/30/20 at 08:01; Status DC Active Scripts Active Admelog (Insulin Lispro) 100 Unit/1 Ml Vial 0 Units SQ TIDWMEALS 30 Days Dok (Docusate Sodium) 100 Mg Capsule 100 Mg PO PRN DAILY PRN 30 Days Quetiapine Fumarate 25 Mg Tablet 25 Mg PO QHS 30 Days Amlodipine Besylate 5 Mg Tablet 5 Mg PO QHS 30 Days Aspirin 81 Mg Tab.chew 81 Mg PO DAILYWBKFT 30 Days Atorvastatin Calcium 20 Mg Tablet 20 Mg PO QHS 30 Days Reported Sinemet 25-100 Mg Tablet (Carbidopa/Levodopa) 1 Each Tablet 1 Tab PO TID Tylenol Extra Strength (Acetaminophen) 500 Mg Tablet 500 Mg PO BID Vitamin B-12 (Cyanocobalamin (Vitamin B-12)) 1,000 Mcg Tablet 1,000 Mcg PO DAILY Glucosamine & Chondroitin Cap (Glucosa Boss 2KCL/Chondroitin Boss) 1 Each Capsule 1 Each PO DAILY Vitamin D (Cholecalciferol (Vitamin D3)) 2,000 Unit Capsule 1 Cap PO DAILY Multiple Vitamin (Multivitamin With Minerals) 1 Each Tablet 1 Each PO DAILY Vitals/I & O Vital Sign - Last 24 Hours 11/01/20 11/01/20 11/01/20 11/01/20 11:00 15:00 19:00 20:00 Temp 97.6 97.7 98.2 97.6 97.7 98.2 Pulse 80 81 83 Resp 18 18 20 B/P (MAP) 134/67 (89) 135/68 (90) 154/68 (96) Pulse Ox 98 100 98 O2 Delivery Room Air Room Air Room Air 11/01/20 11/01/20 11/02/20 11/02/20 20:59 23:00 03:00 04:07 Temp 97.6 97.9 97.6 97.9 Pulse 72 68 77 77 Resp 16 16 B/P (MAP) 154/68 138/59 (85) 169/79 (109) 169/79 Pulse Ox 98 100 11/02/20 07:15 Temp 98.1 98.1 Pulse 78 Resp 18 B/P (MAP) 171/83 (112) Pulse Ox 95 O2 Delivery Room Air Intake and Output 11/01/20 11/01/20 11/02/20 15:00 23:00 07:00 Intake Total 400 ml 200 ml 0 ml Balance 400 ml 200 ml 0 ml Justicifation of Admission Dx: Justifications for Admission: Justification of Admission Dx: Yes HUONG EDGE MD Nov 02, 2020 08:51
[2020-11-02] MEDS: CYANOCOBALAMIN (VITAMIN B-12) 1,000 MCG TABLET. PO SCH (08:52)
[2020-11-02] MEDS: ASPIRIN CHEWABLE 81 MG TABLET. PO SCH (08:52)
[2020-11-02] MEDS: IV NORMAL SALINE 1000ML BAG 1,000 ML IV SCH (08:52)
[2020-11-02] MEDS: CARBIDOPA/LEVODOPA 25/100MG TABLET PO SCH ×2 (08:52→13:47)
[2020-11-02] MEDS: ENOXAPARIN 40 MG/0.4 ML SYRINGE. SQ SCH (08:52)
[2020-11-02] MEDS: INSULIN LISPRO 300 UNITS/3 ML VIAL. SQ SCH ×2 (09:00→12:00)
[2020-11-02 11:02] VITALS: BP 140/80
--- NOTE | 2020-11-02 11:10 | NUR ---
SW following. Discussed with RN, ARPITA spoke with pt's daughter, Sue to discuss discharge planning. Sue advised her sister who has DPOA and her will be coming to [facility] at 1245 and would like to speak with SW. Sue questioned [facility] as a facility, so ARPITA advised Gloria from [facility] can contact her. ARPITA notified Gloria at [facility]. Plan is rehab to home. RN notified. ARPITA will continue to follow. Addendum: 11/02/20 at 1431 by KULDEEP PALM Family decided on SNF at [facility]. Pt accepted and will be collected today at 1530. RN notified. ARPITA attempted to notify pt's daughter, Sue, however could not get through. Choice of vendor form completed. No further ARPITA needs.
--- NOTE | 2020-11-02 13:40 | PDOC ---
PROGRESS NOTES Date of Service DATE: 11/02/20 TIME: 13:38 Assessment Problems Medical Problems: (1) Ambulatory dysfunction Status: Acute Parkinson's disease, has reached the stage of Lewy body dementia, no obvious metabolic derangement to explain the change except for some mild dehydration. Patient has basically given up, daughter says, has not been eating or taking her medications. But she has perked up in the hospital History of transient ischemic attack with negative work-up Lumbar and cervical spondylosis Leukopenia, anemia Hypertension, gastroesophageal reflux disease, vitamin B12 deficiency (level here 270), diabetes Plan I reduced the Sinemet dose as it can cause confusion, continue current dose Plan is to send the patient to rehab for a few days instead of going home with home health Subjective No complaints Objective Vital Signs Date Time Temp Pulse Resp B/P (MAP) Pulse Ox O2 Delivery O2 Flow Rate FiO2 11/02/20 11:02 97.9 69 20 140/80 (100) 97 Room Air 97.9 Intake and Output 11/02/20 07:00 Intake Total 600 ml Balance 600 ml Intake Oral 600 ml # Voids 3 # Bowel Movements 1 PHYSICAL EXAM Alert, does not know date or location, voice stronger Ate breakfast PERRL. EOMI. CN: no focal findings. Muscle tone: Cogwheel rigidity Muscle strength: 4/5 DTR: 1+ Plantar reflex: Flexor Gait: not examined in bed. Sensory exam: no abnormal findings. No cerebellar signs elicited. Minimal rest tremor; bradykinesia, masked facies Review of Relevant I have reviewed the following items gulshan (where applicable) has been applied. Labs Laboratory Tests Test 10/31/20 16:50 10/31/20 20:44 11/01/20 08:01 11/01/20 12:05 Glucose (Fingerstick) 142 mg/dL (70-99) 195 mg/dL (70-99) 155 mg/dL (70-99) 182 mg/dL (70-99) Test 11/01/20 16:58 11/01/20 21:17 11/02/20 07:17 11/02/20 10:05 Glucose (Fingerstick) 161 mg/dL (70-99) 238 mg/dL (70-99) 175 mg/dL (70-99) SARS-CoV-2 Antigen (Rapid) Negative (NEGATIVE) Test 11/02/20 11:21 Glucose (Fingerstick) 139 mg/dL (70-99) Laboratory Tests Test 11/01/20 16:58 11/01/20 21:17 11/02/20 07:17 11/02/20 10:05 Glucose (Fingerstick) 161 mg/dL (70-99) 238 mg/dL (70-99) 175 mg/dL (70-99) SARS-CoV-2 Antigen (Rapid) Negative (NEGATIVE) Test 11/02/20 11:21 Glucose (Fingerstick) 139 mg/dL (70-99) Medications Current Medications Sodium Chloride 1,000 ml @ 1,000 mls/hr Q1H IV Last administered on 10/29/20at 10:29; Start 10/29/20 at 10:00; Stop 10/29/20 at 10:59; Status DC Ondansetron HCl (Zofran) 4 mg PRN Q8HRS PRN IV NAUSEA/VOMITING; Start 10/29/20 at 14:15; Stop 10/30/20 at 14:14; Status DC Morphine Sulfate (Morphine Sulfate) 4 mg PRN Q2HR PRN IV PAIN Last administered on 10/30/20at 03:27; Start 10/29/20 at 14:15; Stop 10/30/20 at 14:14; Status DC Sennosides (Senna) 17.2 mg PRN BID PRN PO CONSTIPATION; Start 10/29/20 at 15:00 Docusate Sodium (Colace) 100 mg PRN DAILY PRN PO HARD STOOLS; Start 10/29/20 at 15:00 Ondansetron HCl (Zofran) 4 mg PRN Q6HRS PRN IVP NAUSEA/VOMITING; Start 10/29/20 at 15:00 Dextrose (Dextrose 50%-Water Syringe) 12.5 gm PRN Q15MIN PRN IV SEE COMMENTS; Start 10/29/20 at 15:00; Status Cancel Sodium Chloride 1,000 ml @ 100 mls/hr Q10H IV Last administered on 11/01/20at 02:59; Start 10/29/20 at 15:00 Acetaminophen (Tylenol) 650 mg PRN Q4HRS PRN PO TEMP OVER 100.4F OR MILD PAIN Last administered on 11/01/20at 02:21; Start 10/29/20 at 15:00 Enoxaparin Sodium (Lovenox 40mg Syringe) 40 mg Q24H SQ Last administered on 11/02/20 08:52; Start 10/30/20 at 09:00 Aspirin (Aspirin Chewable) 81 mg DAILYWBKFT PO Last administered on 11/02/20 08:52; Start 10/30/20 at 08:00 Carbidopa/Levodopa (Sinemet 25/100) 1 tab TID PO Last administered on 11/02/20 08:52; Start 10/29/20 at 16:00 Cyanocobalamin (Vitamin B-12) 1,000 mcg DAILY PO Last administered on 11/02/20 08:52; Start 10/30/20 at 09:00 Insulin Human Lispro (HumaLOG) 0-7 UNITS TIDWMEALS SQ Last administered on 11/02/20 09:00; Start 10/29/20 at 17:00 Dextrose (Dextrose 50%-Water Syringe) 12.5 gm PRN Q15MIN PRN IV SEE COMMENTS; Start 10/29/20 at 15:00 Labetalol HCl (Normodyne Iv Push) 10 mg PRN Q4HRS PRN IVP HYPERTENSION Last administered on 11/02/20 04:07; Start 10/29/20 at 17:15 Amlodipine Besylate (Norvasc) 5 mg QHS PO Last administered on 11/01/20 20:59; Start 10/29/20 at 21:00 Quetiapine Fumarate (SEROquel) 25 mg QHS PO Last administered on 11/01/20 20:58; Start 10/30/20 at 21:00 Ziprasidone (Geodon Im) 10 mg 1X ONCE IM Last administered on 10/30/20at 08:10; Start 10/30/20 at 08:00; Stop 10/30/20 at 08:01; Status DC Active Scripts Active Admelog (Insulin Lispro) 100 Unit/1 Ml Vial 0 Units SQ TIDWMEALS 30 Days Dok (Docusate Sodium) 100 Mg Capsule 100 Mg PO PRN DAILY PRN 30 Days Quetiapine Fumarate 25 Mg Tablet 25 Mg PO QHS 30 Days Amlodipine Besylate 5 Mg Tablet 5 Mg PO QHS 30 Days Aspirin 81 Mg Tab.chew 81 Mg PO DAILYWBKFT 30 Days Atorvastatin Calcium 20 Mg Tablet 20 Mg PO QHS 30 Days Reported Sinemet 25-100 Mg Tablet (Carbidopa/Levodopa) 1 Each Tablet 1 Tab PO TID Tylenol Extra Strength (Acetaminophen) 500 Mg Tablet 500 Mg PO BID Vitamin B-12 (Cyanocobalamin (Vitamin B-12)) 1,000 Mcg Tablet 1,000 Mcg PO DAILY Glucosamine & Chondroitin Cap (Glucosa Boss 2KCL/Chondroitin Boss) 1 Each Capsule 1 Each PO DAILY Vitamin D (Cholecalciferol (Vitamin D3)) 2,000 Unit Capsule 1 Cap PO DAILY Multiple Vitamin (Multivitamin With Minerals) 1 Each Tablet 1 Each PO DAILY Vitals/I & O Vital Sign - Last 24 Hours 11/01/20 11/01/20 11/01/20 11/01/20 15:00 19:00 20:00 20:59 Temp 97.7 98.2 97.7 98.2 Pulse 81 83 72 Resp 18 20 B/P (MAP) 135/68 (90) 154/68 (96) 154/68 Pulse Ox 100 98 O2 Delivery Room Air Room Air 11/01/20 11/02/20 11/02/20 11/02/20 23:00 03:00 04:07 07:15 Temp 97.6 97.9 98.1 97.6 97.9 98.1 Pulse 68 77 77 78 Resp 16 16 18 B/P (MAP) 138/59 (85) 169/79 (109) 169/79 171/83 (112) Pulse Ox 98 100 95 O2 Delivery Room Air 11/02/20 11/02/20 08:00 11:02 Temp 97.9 97.9 Pulse 69 Resp 20 B/P (MAP) 140/80 (100) Pulse Ox 97 O2 Delivery Room Air Room Air Intake and Output 11/01/20 11/01/20 11/02/20 15:00 23:00 07:00 Intake Total 400 ml 200 ml 0 ml Balance 400 ml 200 ml 0 ml Justicifation of Admission Dx: Justifications for Admission: Justification of Admission Dx: Yes LILIA DUNN MD Nov 02, 2020 13:40
[2020-11-02] MEDS: ACETAMINOPHEN 325 MG TABLET. PO PRN (13:48)
--- NOTE | 2020-11-02 13:50 | SNU/HH DC ---
DISCHARGE ORDERS DISCHARGE INFORMATION: DISCHARGE DATE: Nov 02, 2020 FINAL DIAGNOSIS Problems Medical Problems: (1) Ambulatory dysfunction Status: Acute CONDITION ON DISCHARGE: Stable CODE STATUS: Code Status: Full CARE HOME: SNF STAY <30 DAYS: Yes HOSPICE: HOSPICE: No HOSPICE EVAL & TREAT: No LTAC: ADMIT TO LTAC: No POST DISCHARGE ORDERS: ACTIVITY ORDERS: Activity as tolerated WEIGHT BEARING STATUS: No restrictions DIET AFTER DISCHARGE: ADA WOUND/INCISION CARE: Do not change dressing CHECKS AFTER DISCHARGE: CHECKS AFTER DISCHARGE: Check blood press - daily, Check blood sugar, ac/hs, Check your Temp as needed FOLLOW-UP: PHYSICIAN FOLLOW-UP: PCP AT [facility] TODAY LAB ORDERS FOR FOLLOW-UP: CBC, CMP within 2 weeks of discharge TREATMENT/EQUIPMENT ORDERS: ADAPTIVE EQUIPMENT NEEDED: None, Front wheeled walker, Wheelchair Physical Therapy For: Evalulation/Treatment Occupational Therapy For: Evaluation/Treatment Speech Language Pathology For: Evaluation/Treatment DISCHARGE MEDICATIONS: Home Meds Active Scripts Insulin Lispro (Admelog) 100 Unit/1 Ml Vial, 0 UNITS SQ TIDWMEALS for see sliding scale for 30 Days, #2 EACH Prov:HUONG EDGE MD 11/01/20 Docusate Sodium (DOK) 100 Mg Capsule, 100 MG PO PRN DAILY PRN for HARD STOOLS for 30 Days, #60 CAP Prov:HUONG EDGE MD 11/01/20 Quetiapine Fumarate (QUETIAPINE FUMARATE) 25 Mg Tablet, 25 MG PO QHS for mood for 30 Days, #30 TAB Prov:HUONG EDGE MD 11/01/20 Amlodipine Besylate (AMLODIPINE BESYLATE) 5 Mg Tablet, 5 MG PO QHS for hypertension for 30 Days, #30 TAB Prov:HUONG EDGE MD 11/01/20 Aspirin (ASPIRIN) 81 Mg Tab.chew, 81 MG PO DAILYWBKFT for stroke prevention for 30 Days, #30 TAB.CHEW Prov:MARKO HOLMAN MD 06/07/20 Atorvastatin Calcium (ATORVASTATIN CALCIUM) 20 Mg Tablet, 20 MG PO QHS for stroke prevention for 30 Days, #30 TAB Prov:MARKO HOLMAN MD 06/07/20 Reported Medications Carbidopa/Levodopa (SINEMET 25-100 MG TABLET) 1 Each Tablet, 1 TAB PO TID for parkinsons 11/23/18 Acetaminophen (TYLENOL EXTRA STRENGTH) 500 Mg Tablet, 500 MG PO BID for arthritis 11/23/18 Cyanocobalamin (Vitamin B-12) (VITAMIN B-12) 1,000 Mcg Tablet, 1000 MCG PO DAILY for supplement 05/22/17 Glucosa Boss 2KCL/Chondroitin Boss (GLUCOSAMINE & CHONDROITIN CAP) 1 Each Capsule, 1 EACH PO DAILY for arthritis 05/22/17 Cholecalciferol (Vitamin D3) (VITAMIN D) 2,000 Unit Capsule, 1 CAP PO DAILY for supplement 02/24/17 Multivitamin With Minerals (MULTIPLE VITAMIN) 1 Each Tablet, 1 EACH PO DAILY for supplement 02/24/17 Discontinued Reported Medications Pioglitazone Hcl (PIOGLITAZONE HCL) 30 Mg Tablet, 1 TAB PO DAILY for DM2 for 90 Days, #90 09/07/19 Metformin Hcl (METFORMIN HCL) 500 Mg Tablet, 500 MG 2tabs po BID for diabetes 11/24/17 Alendronate Sodium (ALENDRONATE SODIUM) 70 Mg Tablet, 70 MG PO weekly on friday for osteoporosis 02/24/17 Discontinued Scripts Ciprofloxacin Hcl (CIPRO) 250 Mg Tablet, 250 MG PO BID for uti for 3 Days, #6 TAB Prov:MARKO HOLMAN MD 06/07/20 Insulin Lispro (HUMALOG) 100 Unit/1 Ml Insuln.pen, 0-5 UNIT SQ TIDACHC for DM2 for 30 Days, #1 SYR Prov:LURDES ARRIETA MD 09/07/19 HUONG EDGE MD Nov 02, 2020 13:50
[2020-11-02 15:28] VITALS: BP 128/67
== END 2020-11-02 15:30 | DRG 641 ==
LOC: ER 09:53 → ED HOLD 14:03 → 4 NORTH 17:30 → OBSVTOIN 10-30 07:09
PROVIDERS: ADMIT Internal Medicine; ATTEND Internal Medicine
DX: E86.0 Dehydration (principal); R53.1 Weakness; F02.80 Dementia in other diseases classified elsewhere, unspecified severity, without behavioral disturbance, psychotic disturbance, mood disturbance, and anxiety; D63.8 Anemia in other chronic diseases classified elsewhere; E03.9 Hypothyroidism, unspecified; E11.9 Type 2 diabetes mellitus without complications; E53.8 Deficiency of other specified B group vitamins; G31.83 Neurocognitive disorder with Lewy bodies; I10 Essential (primary) hypertension; K21.9 Gastro-esophageal reflux disease without esophagitis; M81.0 Age-related osteoporosis without current pathological fracture; Z51.5 Encounter for palliative care; M19.90 Unspecified osteoarthritis, unspecified site; D72.819 Decreased white blood cell count, unspecified; Z20.822 Contact with and (suspected) exposure to COVID-19; R53.81 Other malaise; R79.89 Other specified abnormal findings of blood chemistry; Z85.3 Personal history of malignant neoplasm of breast; Z86.73 Personal history of transient ischemic attack (TIA), and cerebral infarction without residual deficits; Z88.0 Allergy status to penicillin
CPT/HCPCS: 36415; 70450; 70486; 71045; 72125; 80048; 80053; 80307; 81001; 82607; 82962; 83690; 83735; 83880; 84100; 84443; 84484; 85025; 85379; 87426; 93005; 96360; 96361; 99285; G0378; G0379; J1650; J1815; J2270; J3486; J3490; J7030; U0003; U0005; 92526-GN; 92610-GN; 97110-GP; 97116-GP; 97530-GO; 97530-GP; 97535-GO

== ENCOUNTER 2020-12-03 11:51 | Emergency (ER) | payer MEDICARE, BC, OTHER ==
[~2020-12-03] VITALS: Ht 160 cm; Wt 60.0 kg
[~2020-12-03 11:51] MED LIST changes: +AMLO-186 PO; +DOCU-153 PO; +INSU100V35 SQ; +QUET25TA PO
--- NOTE | 2020-12-03 12:01 | EKG ---
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
--- NOTE | 2020-12-03 12:10 | RAD ---
Study: XR CHEST 1V Indication: Altered mental status. Comparison: 10/29/2020 Findings: Unchanged cardiomediastinal silhouette. Aortic calcific atherosclerosis. No confluent airspace infiltrate, increasing effusion or pneumothorax. Similar aeration pattern of saturnino th lungs from the recent comparison with findings that again could indicate emphysema. Osteopenia. High riding humeral head on the left. Impression: No acute radiographic abnormality of the chest. No relevant change from the 10/29/2020 comparison. Electronically signed by: JAK ALVAREZ MD (12/03/2020 12:07 PM) [facility]
[2020-12-03 12:41] LABS: BASO % 0 % (0-3); EOS # 0.1 x10^3/uL (0.0-0.7); EOS % 2 % (0-3); HEMATOCRIT 36.2 % (36.0-47.0); HEMOGLOBIN 12.1 g/dL (12.0-15.5); LYMPH # 0.4 x10^3/uL (1.0-4.8); LYMPH % 9 % (24-48); MEAN CORPUSCULAR HEMOGLOBIN 31 pg (25-35); MEAN CORPUSCULAR HGB CONC 33 g/dL (31-37); MEAN CORPUSCULAR VOLUME 92 fL (79-100); MONO # 0.4 x10^3/uL (0.0-1.1); MONO % 10 % (0-9); NEUT # 3.6 x10^3/uL (1.8-7.7); NEUT % 80 % (31-73); PLATELET COUNT 383 x10^3/uL (140-400); RED BLOOD COUNT 3.95 x10^6/uL (3.50-5.40); RED CELL DISTRIBUTION WIDTH 15.2 % (11.5-14.5); WHITE BLOOD COUNT 4.5 x10^3/uL (4.0-11.0)
[2020-12-03 12:42] LABS: BILIRUBIN,URINE NEGATIVE (NEG); CLARITY,URINE CLOUDY; COLOR,URINE YELLOW; NITRITE,URINE POSITIVE (NEG); PH,URINE 6.5 (<5.0-8.0); PROTEIN,URINE NEGATIVE (NEG-TRACE)
[2020-12-03 12:51] LABS: CALCIUM 9.1 mg/dL (8.5-10.1); CREATININE 0.8 mg/dL (0.6-1.0); GFR 68.8; POTASSIUM 4.8 mmol/L (3.5-5.1)
--- NOTE | 2020-12-03 13:01 | ED.ADGEN ---
Past Medical History Past Medical History: Arthritis, Cancer, Dementia, TIA, Other Additional Past Medical Histor: BREAST CA, ESSENTIAL TREMORS, BLADDER INFECTION, cognitive deficits Past Surgical History: Other Additional Past Surgical Histo: R LYMPH NODE REMOVED Smoking Status: Never Smoker Alcohol Use: None Drug Use: None General Adult EDM: Chief Complaint: ALTERED MENTAL STATUS HPI: HPI: Patient is a 80 year old female, brought to the emergency department via EMS from longterm, with reports of altered mental status. She denies any complaints or concerns, she has a history of dementia therefore HPI is limited. Family at the bedside states that the patient has been refusing to take her medication from one of her nurses because she does not like her nurse. Family states that she is conversing with and interacting with family how she normally does. Family reports concerns of dehydration because the patient will not drink the thickened water that she has prescribed to her. Patient denies any pain at this time. Review of Systems: Review of Systems: Complete ROS is negative unless otherwise noted in HPI. Current Medications: Current Medications Medications (Trade) Dose Ordered Sig/Tristan Start Time Stop Time Status Last Admin Dose Admin Ceftriaxone Sodium (Rocephin) 1 gm 1X ONCE 12/03/20 14:00 12/03/20 14:01 DC 12/03/20 13:35 1 GM Sodium Chloride 500 ml @ 500 mls/hr 1X ONCE 12/03/20 13:30 12/03/20 14:29 12/03/20 13:35 500 MLS/HR Allergies: Allergies: Allergies Coded Allergies Type Severity Reaction Last Updated Verified amoxicillin Allergy Intermediate Nausea and Vomiting/diarrhea 09/05/19 Yes clavulanic acid Allergy Intermediate Nausea and Vomiting/diarrhea 09/05/19 Yes tramadol Adverse Reaction Intermediate vomiting and diarrhea 02/26/17 Yes Physical Exam: PE: See Above Constitutional: Well developed, well nourished, no acute distress, non-toxic appearance. [] HENT: Normocephalic, atraumatic, bilateral external ears normal, nose normal, dry mucous membrane. [] Eyes: PERRLA, EOMI, conjunctiva normal, no discharge. [] Neck: Normal range of motion, no stridor. [] Cardiovascular:Heart rate regular rhythm Lungs & Thorax: Respirations even and unlabored, no retractions, no respiratory distress Abdomen: soft, no tenderness Skin: Warm, dry, no erythema, no rash. [] Extremities: No cyanosis, ROM intact, no edema. [] Neurologic: Alert and oriented X 2, no focal deficits noted, history of bronwyn ntia. [] Psychologic: Affect normal, judgement normal, mood normal. [] Current Patient Data: Labs: Laboratory Tests Test 12/03/20 12:20 12/03/20 12:30 White Blood Count 4.5 x10^3/uL (4.0-11.0) Red Blood Count 3.95 x10^6/uL (3.50-5.40) Hemoglobin 12.1 g/dL (12.0-15.5) Hematocrit 36.2 % (36.0-47.0) Mean Corpuscular Volume 92 fL (79-100) Mean Corpuscular Hemoglobin 31 pg (25-35) Mean Corpuscular Hemoglobin Concent 33 g/dL (31-37) Red Cell Distribution Width 15.2 % (11.5-14.5) H Platelet Count 383 x10^3/uL (140-400) Neutrophils (%) (Auto) 80 % (31-73) H Lymphocytes (%) (Auto) 9 % (24-48) L Monocytes (%) (Auto) 10 % (0-9) H Eosinophils (%) (Auto) 2 % (0-3) Basophils (%) (Auto) 0 % (0-3) Neutrophils # (Auto) 3.6 x10^3/uL (1.8-7.7) Lymphocytes # (Auto) 0.4 x10^3/uL (1.0-4.8) L Monocytes # (Auto) 0.4 x10^3/uL (0.0-1.1) Eosinophils # (Auto) 0.1 x10^3/uL (0.0-0.7) Basophils # (Auto) 0.0 x10^3/uL (0.0-0.2) Sodium Level 141 mmol/L (136-145) Potassium Level 4.8 mmol/L (3.5-5.1) Chloride Level 102 mmol/L (98-107) Carbon Dioxide Level 28 mmol/L (21-32) Anion Gap 11 (6-14) Blood Urea Nitrogen 43 mg/dL (7-20) H Creatinine 0.8 mg/dL (0.6-1.0) Estimated GFR (Cockcroft-Gault) 68.8 BUN/Creatinine Ratio 54 (6-20) H Glucose Level 138 mg/dL (70-99) H Lactic Acid Level 1.0 mmol/L (0.4-2.0) Calcium Level 9.1 mg/dL (8.5-10.1) Magnesium Level 2.0 mg/dL (1.8-2.4) Total Bilirubin 0.3 mg/dL (0.2-1.0) Aspartate Amino Transferase (AST) 46 U/L (15-37) H Alanine Aminotransferase (ALT) 19 U/L (14-59) Alkaline Phosphatase 56 U/L (46-116) Troponin I Quantitative < 0.017 ng/mL (0.000-0.055) Total Protein 6.4 g/dL (6.4-8.2) Albumin 3.0 g/dL (3.4-5.0) L Albumin/Globulin Ratio 0.9 (1.0-1.7) L Urine Collection Type Unknown Urine Color Yellow Urine Clarity Cloudy Urine pH 6.5 (<5.0-8.0) Urine Specific [place] >=1.030 (1.000-1.030) Urine Protein Negative mg/dL (NEG-TRACE) Urine Glucose (UA) Negative mg/dL (NEG) Urine Ketones (Stick) 15 mg/dL (NEG) Urine Blood Negative (NEG) Urine Nitrite Positive (NEG) Urine Bilirubin Negative (NEG) Urine Urobilinogen Dipstick 1.0 mg/dL (0.2 mg/dL) Urine Leukocyte Esterase Moderate (NEG) Urine RBC 0 /HPF (0-2) Urine WBC 5-10 /HPF (0-4) Urine Squamous Epithelial Cells Few /LPF Urine Amorphous Sediment Present /HPF Urine Bacteria Moderate /HPF (0-FEW) Urine Mucus Slight /LPF Laboratory Tests 12/03/20 12:20 Laboratory Tests 12/03/20 12:20 Vital Signs: Vital Signs Date Time Temp Pulse Resp B/P (MAP) Pulse Ox O2 Delivery O2 Flow Rate FiO2 12/03/20 12:52 80 16 116/56 (76) 97 Room Air 12/03/20 11:51 98.7 98.7 EKG: EK-sinus rhythm, rate 62, abnormal left axis deviation, left anterior fascicu lar block, no STEMI, read by Dr. Garrett [] Heart Score: C/O Chest Pain: No Risk Scores: Score 0 - 3: 2.5% MACE over next 6 weeks - Discharge Home Score 4 - 6: 20.3% MACE over next 6 weeks - Admit for Clinical Observation Score 7 - 10: 72.7% MACE over next 6 weeks - Early Invasive Strategies Radiology/Procedures: Radiology/Procedures: PROCEDURE: CHEST AP ONLY Study: XR CHEST 1V Indication: Altered mental status. Comparison: 10/29/2020 Findings: Unchanged cardiomediastinal silhouette. Aortic calcific atherosclerosis. No confluent airspace infiltrate, increasing effusion or pneumothorax. Similar aeration pattern of both lungs from the recent comparison with findings that again could indicate emphysema. Osteopenia. High riding humeral head on the left. Impression: No acute radiographic abnormality of the chest. No relevant change from the 10/29/2020 comparison. [] PROCEDURE: CT HEAD WO CONTRAST CT HEAD/BRAIN WO Date: 12/03/2020 1:00 PM Clinical Indication: altered MS Comparison: None. Technique: 5 mm axial tomographic images were obtained of the head without c ontrast. These were viewed on brain and bone windows. One or more of the following dose reduction techniques were utilized: Automated exposure control (AEC), Adjustment of mA and/or kV according to patient size, Use of iterative reconstruction technique such as ASiR, CT scan done according to ALARA and image gently/image wisely Findings: Mild generalized cerebral and cerebellar volume loss. Moderate nonspecific periventricular hypoattenuation, most commonly seen with chronic small vessel ischemic disease. Calcified atherosclerosis of the bilateral cavernous and paraclinoid internal carotid arteries and intracranial vertebral arteries. No intra- or extra-axial mass or fluid collection. No acute hemorrhage. The ventricles are normal in size, shape, and morphology. The cedeño-white matter ju nction is normal. The subarachnoid cisterns are patent. The visualized paranasal sinuses are normal. The visualized portions of the orbits and globes are normal. The mastoid air cells are clear. The renal nurse topogram shows no lytic lesion or fracture. Impression: No acute intracranial process. Mild cerebral volume loss. Moderate chronic small vessel ischemic disease. Electronically signed by: Nicolás Holden MD (12/03/2020 1:23 PM) [id number] Course & Med Decision Making: Course & Med Decision Making Pertinent Labs and Imaging studies reviewed. (See chart for details) 80-year-old female presented emergency department for evaluation of altered mental status. Chest x-ray and CT the patient's head revealed no acute findings. CBC is unremarkable; CMP revealed BUN of 43, elevated BUN/creatinine ratio 54, blood glucose of 138, AST of 46, negative troponin, otherwise unremarkable; urinalysis is concerning for positive nitrites 5-10 white blood cells, and moderate bacteria. Patient was given 500 mL of normal saline and a gram of Rocephin IV. Prescription written for Macrobid twice daily for 10 days. Patient discharged back to acute rehab facility, encouraged to follow-up with her primary care doctor in 1 to 2 days for reevaluation, return to the ER if symptoms worsen or fever develops. Patient's daughter verbalized an understanding of home care, medications, follow-up, and return to ED instructions and was in agreement with the plan of care. [] Dragon Disclaimer: Dragon Disclaimer: This electronic medical record was generated, in whole or in part, using a voice recognition dictation system. Departure Departure Impression: Primary Impression: UTI (urinary tract infection) Additional Impression: Altered level of consciousness Disposition: 01 HOME / SELF CARE / HOMELESS Condition: STABLE Referrals: Quita ROSS MD (PCP) Patient Instructions: Altered Mental Status, Urinary Tract Infection, [id number] Additional Instructions: Fill prescription(s) and take as directed. Avoid bladder irritants such as caffeine, carbonation, and spicy foods. Increase clear fluids. Follow up with your primary care doctor in 1-2 days, return to the ER if symptoms worsen or fever develops. Scripts Nitrofurantoin Macrocrystal (NITROFURANTOIN) 100 Mg Capsule 1 CAP PO BID, #20 CAP 0 Refills Prov: SIERRA SEE APRN 12/03/20 Problem Qualifiers Primary Impression: UTI (urinary tract infection) Urinary tract infection type: site unspecified Hematuria presence: without hematuria Qualified Codes: N39.0 - Urinary tract infection, site not specified SIERRA SEE APRN December 03, 2020 13:01
[2020-12-03 13:04] LABS: ALBUMIN/GLOBULIN RATIO 0.9 (1.0-1.7); TOTAL BILIRUBIN 0.3 mg/dL (0.2-1.0); TOTAL PROTEIN 6.4 g/dL (6.4-8.2)
[2020-12-03 13:12] LABS: AMORPHOUS SEDIMENT,UR PRESENT /HPF
[2020-12-03 13:15] LABS: BACTERIA,URINE MODERATE /HPF (0-FEW); RBC,URINE 0 /HPF (0-2)
--- NOTE | 2020-12-03 13:25 | RAD ---
CT HEAD/BRAIN WO Date: 12/03/2020 1:00 PM Clinical Indication: altered MS Comparison: None. Technique: 5 mm axial tomographic images were obtained of the head without contrast. These were view ed on brain and bone windows. One or more of the following dose reduction techniques were utilized: A utomated exposure control (AEC), Adjustment of mA and/or kV according to patient size, Use of iterati ve reconstruction technique such as ASiR, CT scan done according to ALARA and image gently/image ray ly Findings: Mild generalized cerebral and cerebellar volume loss. Moderate nonspecific periventricular hypoattenu ation, most commonly seen with chronic small vessel ischemic disease. Calcified atherosclerosis of th e bilateral cavernous and paraclinoid internal carotid arteries and intracranial vertebral arteries. No intra- or extra-axial mass or fluid collection. No acute hemorrhage. The ventricles are normal in size, shape, and morphology. The cedeño-white matter junction is normal. The subarachnoid cisterns are patent. The visualized paranasal sinuses are normal. The visualized portions of the orbits and globes are no rmal. The mastoid air cells are clear. The furniture servicer topogram shows no lytic lesion or fracture. Impression: No acute intracranial process. Mild cerebral volume loss. Moderate chronic small vessel ischemic disease. Electronically signed by: Nicolás Holden MD (12/03/2020 1:23 PM) [id number]
[2020-12-03] MEDS: IV NORMAL SALINE 500ML BAG 500 ML IV ONE (13:35)
[2020-12-03] MEDS: cefTRIAXone IV Push 1 GM VIAL. IVP ONE (13:35)
[2020-12-03] MEDS ORDERED: NITR100C PO (14:11)
[2020-12-03 14:55] VITALS: BP 156/85
== END 2020-12-03 16:30 | disposition home or self-care (01) ==
LOC: ER 11:51
DX: N39.0 Urinary tract infection, site not specified (principal); R40.4 Transient alteration of awareness; F03.90 Unspecified dementia, unspecified severity, without behavioral disturbance, psychotic disturbance, mood disturbance, and anxiety; Z86.73 Personal history of transient ischemic attack (TIA), and cerebral infarction without residual deficits; Z88.1 Allergy status to other antibiotic agents; Z88.6 Allergy status to analgesic agent; Z88.8 Allergy status to other drugs, medicaments and biological substances
CPT/HCPCS: 36415; 70450; 71045; 80053; 81001; 83605; 83735; 84484; 85025; 87086; 93005; 96374; 99285; J0696; J7040

== ENCOUNTER 2021-02-07 17:08 | Emergency (ER) | payer MEDICARE, BC, OTHER ==
[~2021-02-07] VITALS: Ht 157.5 cm; Wt 90.9 kg
[~2021-02-07 17:08] MED LIST changes: +DOCU-148 PO; -DOCU-153 PO; +NITR100C PO; -QUET25TA PO; +QUET25TA3 PO
--- NOTE | 2021-02-07 18:29 | RAD ---
PQRS Compliance Statement: One or more of the following individualized dose reduction techniques were utilized for this examinat ion: 1. Automated exposure control 2. Adjustment of the mA and/or kV according to patient size 3. Use of iterative reconstruction technique CT head and cervical spine without contrast 02/07/2021 5:[address] lumbar spine without contrast INDICATION: Fall off the wheelchair COMPARISON: CT head 12/03/2020, CT cervical spine 10/29/2020, lumbar spine 06/02/2020 TECHNIQUE: Multiple axial CT images of the head were obtained from skull base through the vertex with out intravenous contrast. Multiple axial CT images of the cervical spine and lumbar spine were obtain ed without intravenous contrast. Coronal and sagittal reformats are provided. FINDINGS: Head: Ventricles, sulci and basal cisterns are prominent compatible with moderate generalized cerebral volu me loss. Low-attenuation in the periventricular white matter is suggestive of chronic small vessel is chemic changes. Masses. There is no hydrocephalus. Erickson-white matter differentiation is normal. There is no acute intracranial hemorrhage. There is no mass, mass effect or midline shift. Posterior fossa is normal in appearance. Visualized portions of the orbits are normal. Paranasal sinuses are well aerated. Mastoid air cells a re well aerated. Scalp and calvaria are normal. Cervical spine: Alignment of the cervical spine is normal. Skull base is intact. Craniocervical junction is normal in appearance. Degenerative changes are identified at the atlantoaxial articulation. Atlantooccipital a rticulation is intact. Mild calcification along the transverse ligament. Vertebral body heights are maintained without evidence for acute fracture. At C3-C4, there is a mild disc bulge with moderate left and mild to moderate right facet arthropathy. Mild uncovertebral joint disease. Mild left neuroforaminal stenosis. At C4-C5, there is a posterior disc osteophyte complex asymmetric to the left. Moderate facet arthropathy and moderate left uncovert ebral joint disease resulting in moderate left neuroforaminal stenosis. At C5-C6, there is mild disc osteophyte complex. Mild facet and uncovertebral joint disease. Mild osseous spinal canal stenosis. A t C6-C7, there is a posterior disc osteophyte complex with mild facet and uncovertebral joint disease resulting in mild neuroforaminal stenosis. There is no prevertebral soft tissue swelling. Mild heterogeneity of the thyroid gland. Diffuse retic ular interstitial changes identified within the lungs with trace right pleural effusion. Lumbar: There is grade 1 anterolisthesis of L4 on L5 measuring 7 mm. There is 3 mm anterolisthesis of L5 on S 1. There is a superior endplate compression deformity at L2 with 50 percent height loss secondary sup erior endplate Schmorl's node. No significant retropulsion is identified. This finding is chronic. No new acute compression fracture. Abdominal aorta is normal in caliber with moderate calcified atherom atous plaque. Coil mass identified within the central pelvis. Urinary bladder within normal limits gi ana maria degree of distention. Colonic diverticulosis. Visualized portions of the sacrum appear intact. L1-L2: Mild disc bulge. Mild facet arthropathy. Mild neuroforaminal stenosis. Mild spinal canal steno sis. L2-L3: There is mild disc bulge. Mild facet arthropathy ligamentum flavum infolding. Moderate bilater al neuroforaminal stenosis. No significant spinal canal stenosis. L3-L4: Circumferential disc bulge. Moderate left and moderate facet arthropathy ligamentum flavum inf olding. Moderate left and mild right neuroforaminal stenosis. Mild spinal canal stenosis. L4-L5: There is a circumferential disc bulge. Severe facet arthropathy. Moderate bilateral neuroforam inal stenosis. Mild to moderate spinal canal stenosis. L5-S1: There is a mild disc bulge. Moderate severe facet arthropathy. Moderate bilateral neuroforamin al stenosis. No spinal canal stenosis. IMPRESSION: 1. No acute intracranial hemorrhage. Moderate generalized cerebral volume loss. Low-attenuation in th e periventricular white matter is suggestive of chronic small vessel ischemic changes. 2. No acute fracture or malalignment of the cervical spine. 3. Mild cervical spondylosis. 4. Reticular interstitial changes are identified within the lungs with trace right pleural effusion. Correlate with interstitial pneumonitis versus interstitial edema. 5. Chronic superior plate compression deformity at L2 with 50 percent height loss. No significant ret ropulsion. Moderate lumbar spondylosis. Electronically signed by: Megan Jauregui MD (02/07/2021 6:27 PM) [facility]
--- NOTE | 2021-02-07 18:42 | RAD ---
PQRS Compliance Statement: One or more of the following individualized dose reduction techniques were utilized for this examinat ion: 1. Automated exposure control 2. Adjustment of the mA and/or kV according to patient size 3. Use of iterative reconstruction technique CT LOWER EXTREMITY WITHOUT CONTRAST 02/07/2021 5:40 PM Indication: Hip pain COMPARISON: None available. TECHNIQUE: Multiple axial CT images of the hips were obtained without intravenous contrast. Coronal a nd sagittal reformats are provided. FINDINGS: There is moderate joint space narrowing involving the femoral acetabular joints with marginal osteoph ytosis compatible with moderate osteoarthrosis. There is no acute fracture or dislocation. Superior a nd inferior pubic rami are intact. Acetabula are intact. Pubic symphysis is well aligned. Sacroiliac joints are not well evaluated. Sacrum is only partially profiled. No intramuscular hematoma. Small la rge bowel are normal. Urinary bladder is within normal limits given degree of distention. No suspicio us pelvic lymphadenopathy. IMPRESSION: Moderate osteoarthrosis of the hips without acute fracture or dislocation. Electronically signed by: Megan Jauregui MD (02/07/2021 6:40 PM) [facility]
[2021-02-07 19:00] VITALS: BP 158/95
--- NOTE | 2021-02-07 19:11 | PHYS DOC ---
Past Medical History Past Medical History: Arthritis, Cancer, Dementia, TIA, Other Additional Past Medical Histor: BREAST CA, ESSENTIAL TREMORS, BLADDER INFECTION, cognitive deficits Past Surgical History: Other Additional Past Surgical Histo: R LYMPH NODE REMOVED Smoking Status: Never Smoker Alcohol Use: None Drug Use: None General Adult EDM: Chief Complaint: MECHANICAL FALL HPI: HPI: Patient is a 80 year old female with a history of dementia, TIA, among other illnesses who presents to the ED today from a local senior living to be evaluated after falling off a wheelchair. This was unwitnessed fall. Patient is a poor historian and not able to give us much information. group home staff had reported to EMS patient was complaining of left hip pain. Patient denies any pain on arrival to the ED Review of Systems: Review of Systems: Constitutional: Unable to assess due to mentation Eyes: Unable to assess due to mentation HENT: Unable to assess due to mentation Respiratory: Unable to assess due to mentation Cardiovascular: Unable to assess due to mentation GI: Unable to assess due to mentation : Unable to assess due to mentation Musculoskeletal: EMS reports left hip pain Integument: Unable to assess due to mentation Neurologic: Unable to assess due to mentation Psychiatric: Unable to assess due to mentation Heart Score: C/O Chest Pain: N/A Risk Factors: Risk Factors: DM, Current or recent (<one month) smoker, HTN, HLP, family history of CAD, obesity. Risk Scores: Score 0 - 3: 2.5% MACE over next 6 weeks - Discharge Home Score 4 - 6: 20.3% MACE over next 6 weeks - Admit for Clinical Observation Score 7 - 10: 72.7% MACE over next 6 weeks - Early Invasive Strategies Allergies: Allergies: Allergies Coded Allergies Type Severity Reaction Last Updated Verified amoxicillin Allergy Intermediate Nausea and Vomiting/diarrhea 09/05/19 Yes clavulanic acid Allergy Intermediate Nausea and Vomiting/diarrhea 09/05/19 Yes tramadol Adverse Reaction Intermediate vomiting and diarrhea 02/26/17 Yes Physical Exam: PE: Constitutional: Well developed, well nourished, no acute distress, non-toxic appearance. [] HENT: Normocephalic,bilateral external ears normal, oropharynx moist, no oral exudates, nose normal. [] Eyes: PERRLA, EOMI, conjunctiva normal, no discharge. [] Neck: Normal range of motion, no tenderness, supple, no stridor. [] Cardiovascular:Heart rate regular rhythm, no murmur [] Lungs & Thorax: Bilateral breath sounds clear to auscultation [] Abdomen: Bowel sounds normal, soft, no tenderness, no masses, no pulsatile masses. [] Skin: Warm, dry, no erythema, small old laceration roughly 0.5 cm noted on the left forehead Back: No tenderness, no CVA tenderness. [] Extremities: No tenderness, no cyanosis, no clubbing, ROM intact, no edema. [] Neurologic: Alert and oriented X 1 this is her baseline, normal motor function, normal sensory function, no focal deficits noted. Cranial nerves II through XII intact Psychologic: Flat affect Current Patient Data: Vital Signs: Vital Signs Date Time Temp Pulse Resp B/P (MAP) Pulse Ox O2 Delivery O2 Flow Rate FiO2 02/07/21 17:10 98.6 69 16 163/74 (108) 96 Room Air 98.6 EKG: EK interpreted by Dr. Calderon sinus rhythm heart rate 69 no STEMI Radiology/Procedures: Radiology/Procedures: []PROCEDURE: CT LUMBAR SPINE WO CONTRAST PQRS Compliance Statement: One or more of the following individualized dose reduction techniques were utilized for this examination: 1. Automated exposure control 2. Adjustment of the mA and/or kV according to patient size 3. Use of iterative reconstruction technique CT head and cervical spine without contrast 02/07/2021 5:[address] lumbar spine without contrast INDICATION: Fall off the wheelchair COMPARISON: CT head 12/03/2020, CT cervical spine 10/29/2020, lumbar spine 06/02/2020 TECHNIQUE: Multiple axial CT images of the head were obtained from skull base through the vertex without intravenous contrast. Multiple axial CT images of the cervical spine and lumbar spine were obtained without intravenous contrast. Coronal and sagittal reformats are provided. FINDINGS: Head: Ventricles, sulci and basal cisterns are prominent compatible with moderate generalized cerebral volume loss. Low-attenuation in the periventricular white matter is suggestive of chronic small vessel ischemic changes. Masses. There is no hydrocephalus. Erickson-white matter differentiation is normal. There is no acute intracranial hemorrhage. There is no mass, mass effect or midline shift. Posterior fossa is normal in appearance. Visualized portions of the orbits are normal. Paranasal sinuses are well aerated. Mastoid air cells are well aerated. Scalp and calvaria are normal. Cervical spine: Alignment of the cervical spine is normal. Skull base is intact. Craniocervical junction is normal in appearance. Degenerative changes are identified at the atlantoaxial articulation. Atlantooccipital articulation is intact. Mild calcification along the transverse ligament. Vertebral body heights are maintained without evidence for acute fracture. At C3-C4, there is a mild disc bulge with moderate left and mild to moderate right facet arthropathy. Mild uncovertebral joint disease. Mild left neuroforaminal stenosis. At C4-C5, there is a posterior disc osteophyte complex asymmetric to the left. Moderate facet arthropathy and moderate left uncovertebral joint disease resulting in moderate left neuroforaminal stenosis. At C5-C6, there is mild disc osteophyte complex. Mild facet and uncovertebral joint disease. Mild osseous spinal canal stenosis. At C6-C7, there is a posterior disc osteophyte complex with mild facet and uncovertebral joint disease resulting in mild neuroforaminal stenosis. There is no prevertebral soft tissue swelling. Mild heterogeneity of the thyroid gland. Diffuse reticular interstitial changes identified within the lungs with trace right pleural effusion. Lumbar: There is grade 1 anterolisthesis of L4 on L5 measuring 7 mm. There is 3 mm anterolisthesis of L5 on S1. There is a superior endplate compression deformity at L2 with 50 percent height loss secondary superior endplate Schmorl's node. No significant retropulsion is identified. This finding is chronic. No new acute compression fracture. Abdominal aorta is normal in caliber with moderate calcified atheromatous plaque. Coil mass identified within the central pelvis. Urinary bladder within normal limits given degree of distention. Colonic diverticulosis. Visualized portions of the sacrum appear intact. L1-L2: Mild disc bulge. Mild facet arthropathy. Mild neuroforaminal stenosis. Mild spinal canal stenosis. L2-L3: There is mild disc bulge. Mild facet arthropathy ligamentum flavum infolding. Moderate bilateral neuroforaminal stenosis. No significant spinal canal stenosis. L3-L4: Circumferential disc bulge. Moderate left and moderate facet arthropathy ligamentum flavum infolding. Moderate left and mild right neuroforaminal stenosis. Mild spinal canal stenosis. L4-L5: There is a circumferential disc bulge. Severe facet arthropathy. Moderate bilateral neuroforaminal stenosis. Mild to moderate spinal canal stenosis. L5-S1: There is a mild disc bulge. Moderate severe facet arthropathy. Moderate bilateral neuroforaminal stenosis. No spinal canal stenosis. IMPRESSION: 1. No acute intracranial hemorrhage. Moderate generalized cerebral volume loss. Low-attenuation in the periventricular white matter is suggestive of chronic small vessel ischemic changes. 2. No acute fracture or malalignment of the cervical spine. 3. Mild cervical spondylosis. 4. Reticular interstitial changes are identified within the lungs with trace right pleural effusion. Correlate with interstitial pneumonitis versus interstitial edema. 5. Chronic superior plate compression deformity at L2 with 50 percent height loss. No significant retropulsion. Moderate lumbar spondylosis. Electronically signed by: Yvette Walker MD (02/07/2021 6:27 PM) [facility] DICTATED and SIGNED BY: YVETTE WALKER MD DATE: 02/07/21 [id number] Course & Med Decision Making: Course & Med Decision Making Pertinent Labs and Imaging studies reviewed. (See chart for details) This is a 80-year-old female patient presented to the ED today to be evaluated after falling. EMS reported left hip pain. Patient has no pain complaints in the ED though CT of the head, cervical spine, thoracic spine, lumbar spine and bilateral hip CTs are negative for any acute findings. Discharge back to the senior living. Rene Disclaimer: Rene Disclaimer: This electronic medical record was generated, in whole or in part, using a voice recognition dictation system. Departure Departure Impression: Primary Impression: Fall Qualified Codes: W19.XXXA - Unspecified fall, initial encounter Additional Impressions: Contusion of hip, right Qualified Codes: S70.01XA - Contusion of right hip, initial encounter Contusion of hip, left Qualified Codes: S70.02XA - Contusion of left hip, initial encounter Disposition: HOME / SELF CARE / HOMELESS Condition: STABLE Referrals: Quita ROSS MD (PCP) follow up next week Patient Instructions: Contusion, [id number], Fall Prevention and Home Safety Additional Instructions: You were evaluated in the emergency room, we did a CT of your head, cervical spine, thoracic spine, lumbar spine, and bilateral hips which were negative for any acute findings. Please follow-up with your primary care doctor in 1 week SHERRON RODRIGUEZ APRN Feb 07, 2021 19:11
== END 2021-02-07 20:21 | disposition home or self-care (01) ==
LOC: ER 17:08
DX: S70.01XA Contusion of right hip, initial encounter (principal); S70.02XA Contusion of left hip, initial encounter; R51.9 Headache, unspecified; M54.2 Cervicalgia; F03.90 Unspecified dementia, unspecified severity, without behavioral disturbance, psychotic disturbance, mood disturbance, and anxiety; Z86.73 Personal history of transient ischemic attack (TIA), and cerebral infarction without residual deficits; Z88.1 Allergy status to other antibiotic agents; Z88.6 Allergy status to analgesic agent; Z88.8 Allergy status to other drugs, medicaments and biological substances; W05.0XXA Fall from non-moving wheelchair, initial encounter; Y93.89 Activity, other specified; Y92.89 Other specified places as the place of occurrence of the external cause; Y99.8 Other external cause status
CPT/HCPCS: 70450; 72125; 72131; 73700-50; 99285-25

== ENCOUNTER 2021-03-31 10:43 | Emergency (ER) | payer MEDICARE, BC, OTHER ==
[~2021-03-31] VITALS: Ht 165.1 cm; Wt 59.0 kg
[2021-03-31 10:51] VITALS: BP 145/72
--- NOTE | 2021-03-31 10:51 | PHYS DOC ---
Past Medical History Past Medical History: Arthritis, Cancer, Dementia, TIA, Other Additional Past Medical Histor: BREAST CA, ESSENTIAL TREMORS, BLADDER INFECTION, cognitive deficits Past Surgical History: Other Additional Past Surgical Histo: R LYMPH NODE REMOVED Smoking Status: Never Smoker Alcohol Use: None Drug Use: None General Adult EDM: Chief Complaint: GTUBE REPLACEMENT/MALFUNCTION HPI: HPI: HPI given by transport sheet rock applier and [facility] transport record. Patient is nonverbal. Patient was sent here by [facility] after staff noticed G-tube was dislodged during morning medication rounds. Denies other complaints or concerns. Patient has a history of dementia, type 2 diabetes, dysphagia, G-tube placement. [facility] Review of Systems: Review of Systems: Limited ROS related to patient nonverbal, sent here by [facility] for G-tube replacement. Heart Score: C/O Chest Pain: No Risk Factors: Risk Factors: DM, Current or recent (<one month) smoker, HTN, HLP, family history of CAD, obesity. Risk Scores: Score 0 - 3: 2.5% MACE over next 6 weeks - Discharge Home Score 4 - 6: 20.3% MACE over next 6 weeks - Admit for Clinical Observation Score 7 - 10: 72.7% MACE over next 6 weeks - Early Invasive Strategies Allergies: Allergies: Allergies Coded Allergies Type Severity Reaction Last Updated Verified amoxicillin Allergy Intermediate Nausea and Vomiting/diarrhea 09/05/19 Yes clavulanic acid Allergy Intermediate Nausea and Vomiting/diarrhea 09/05/19 Yes tramadol Adverse Reaction Intermediate vomiting and diarrhea 02/26/17 Yes Physical Exam: PE: Constitutional: Well developed, well nourished, no acute distress, non-toxic appearance. 80-year-old female in no apparent distress. HENT: Normocephalic, atraumatic. Eyes: Conjunctiva normal, no discharge. Neck: Normal range of motion, no stridor. Cardiovascular: No cyanosis appreciated, distal cap refill less than 2 seconds. Lungs & Thorax: Patient is in no respiratory distress, no audible adventitious lung sounds appreciated. Abdomen: Nontender, gastrostomy tube stoma nonerythematous, scant amount of bright red bleeding. Skin: Warm, dry, no erythema, no rash. Back: No tenderness, no deformities. Extremities: No tenderness, no cyanosis, no clubbing, ROM intact, no edema. Neurologic: Alert, nonverbal, normal motor function, normal sensory function, no focal deficits noted. Psychologic: History of Alzheimer's, patient nonverbal. EKG: EKG: [] Radiology/Procedures: Radiology/Procedures: [] Course & Med Decision Making: Course & Med Decision Making Pertinent Labs and Imaging studies reviewed. (See chart for details) 80-year-old female, vital signs reviewed, sent here by [facility] for G-tube replacement after reported G-tube found dislodged this morning during morning medication rounds by staff. Patient is nonverbal, paramedics brought the patient's G-tube that was dislodged, G-tube is a 18 [place]ian with 8 cc balloon. Replace G-tube with 18 [place] 20 cc balloon without difficulty through the G- tube stoma, gastric contents expelled through tube, flushed with 60 cc tap water without difficulty, patient tolerated well. ED plan will return to [facility], use G-tube as directed by primary care physician. ED nursing staff to dress G-tube site. Discussed with the patient all findings and diagnostic testing as well as the need to follow-up with their primary care provider for further evaluation and treatment or return to the ED if any new or worsening symptoms. Strict return precautions were also discussed at length, the patient voiced understanding and agreement with the discharge planning. The patient was nontoxic in appearance, in no apparent distress, and hemodynamically stable at the time of disposition. Dragon Disclaimer: Dragon Disclaimer: This electronic medical record was generated, in whole or in part, using a voice recognition dictation system. Departure Departure Impression: Primary Impression: Gastrostomy tube dysfunction Disposition: 01 HOME / SELF CARE / HOMELESS Condition: GOOD Referrals: Quita ROSS MD (PCP) Patient Instructions: Care of a Feeding Tube Site Additional Instructions: You were seen today in the emergency department after dislodging your G-tube. This was replaced with an 18 [place]ian 20 cc G-tube which is the same size that was removed. However the tube that was removed had an 8 cc balloon. This 1 has a 20 cc balloon. Please continue to use your G-tube as directed by your physician for feeding. You may continue all physician guided therapy through this G-tube as directed. Thank you for visiting our Emergency Department. It was a pleasure taking care of you today in the emergency department and we appreciate you trusting us with your care. If any additional problems come up don't hesitate to return to visit us. Please follow up with your primary care provider so they can plan additional care if needed and know about the problem that you had. If symptoms worsen come back to the Emergency Department. Any concerning symptoms that start such as chest pain, shortness of air, weakness or numbness on one side of the body, running high fevers or any other concerning symptoms return to the ER. JANNET QUIROS APRN Mar 31, 2021 10:51
== END 2021-03-31 11:04 | disposition home or self-care (01) ==
LOC: ER 10:43
DX: K94.23 Gastrostomy malfunction (principal); M19.90 Unspecified osteoarthritis, unspecified site; F03.90 Unspecified dementia, unspecified severity, without behavioral disturbance, psychotic disturbance, mood disturbance, and anxiety; Z86.73 Personal history of transient ischemic attack (TIA), and cerebral infarction without residual deficits; Z88.1 Allergy status to other antibiotic agents; Z88.6 Allergy status to analgesic agent
CPT/HCPCS: 43762; 99284

== ENCOUNTER 2021-03-31 18:30 | Emergency (ER) | payer MEDICARE, BC, OTHER ==
[~2021-03-31] VITALS: Ht 165.1 cm; Wt 72.2 kg
--- NOTE | 2021-03-31 19:06 | PHYS DOC ---
Past Medical History Past Medical History: Arthritis, Cancer, Dementia, TIA, Other Additional Past Medical Histor: BREAST CA, ESSENTIAL TREMORS, BLADDER INFECTION, cognitive deficits (JANNET QUIROS APRN) Past Surgical History: Other Additional Past Surgical Histo: R LYMPH NODE REMOVED (JANNET QUIROS APRN) Smoking Status: Unknown if ever smoked Alcohol Use: None Drug Use: None (JANNET QUIROS APRN) General Adult EDM: Chief Complaint: GTUBE REPLACEMENT/MALFUNCTION HPI: HPI: HPI given by transport customer care voice consultant and senior living transport record. Patient is nonverbal. Patient was sent here by senior living after staff noticed G-tube was dislodged during morning medication rounds. Denies other complaints or concerns. Patient has a history of dementia, type 2 diabetes, dysphagia, G-tube placement. [facility] The patient was here earlier for same incident. Per senior living staff patient pulled her G-tube out for a second time today. (JANNET QUIROS APRN) Review of Systems: Review of Systems: Limited ROS related to patient nonverbal, sent here by senior living for G-tube replacement (JANNET QUIROS APRN) Heart Score: C/O Chest Pain: No Risk Factors: Risk Factors: DM, Current or recent (<one month) smoker, HTN, HLP, family history of CAD, obesity. Risk Scores: Score 0 - 3: 2.5% MACE over next 6 weeks - Discharge Home Score 4 - 6: 20.3% MACE over next 6 weeks - Admit for Clinical Observation Score 7 - 10: 72.7% MACE over next 6 weeks - Early Invasive Strategies (JANNET QUIROS APRN) Allergies: Allergies: Allergies Coded Allergies Type Severity Reaction Last Updated Verified amoxicillin Allergy Intermediate Nausea and Vomiting/diarrhea 09/05/19 Yes clavulanic acid Allergy Intermediate Nausea and Vomiting/diarrhea 09/05/19 Yes tramadol Adverse Reaction Intermediate vomiting and diarrhea 02/26/17 Yes (JANNET QUIROS APRN) Physical Exam: PE: Constitutional: Well developed, well nourished, no acute distress, non-toxic appearance. 80-year-old female in no apparent distress. HENT: Normocephalic, atraumatic. Eyes: Conjunctiva normal, no discharge. Neck: Normal range of motion, no stridor. Cardiovascular: No cyanosis appreciated, distal cap refill less than 2 seconds. Lungs & Thorax: Patient is in no respiratory distress, no audible adventitious lung sounds appreciated. Abdomen: Nontender, gastrostomy tube stoma nonerythematous, scant amount of bright red bleeding. Skin: Warm, dry, no erythema, no rash. Back: No tenderness, no deformities. Extremities: No tenderness, no cyanosis, no clubbing, ROM intact, no edema. Neurologic: Alert, nonverbal, normal motor function, normal sensory function, no focal deficits noted. Psychologic: History of Alzheimer's, patient nonverbal. (JANNET QUIROS APRN) Current Patient Data: Vital Signs: Vital Signs Date Time Temp Pulse Resp B/P (MAP) Pulse Ox O2 Delivery O2 Flow Rate FiO2 03/31/21 18:33 98.1 71 20 122/66 (84) 97 Room Air 98.1 (JANNET QUIROS APRN) EKG: EKG: [] (JANNET QUIROS APRN) Radiology/Procedures: Radiology/Procedures: [] (JANNET QUIROS APRN) Course & Med Decision Making: Course & Med Decision Making Pertinent Labs and Imaging studies reviewed. (See chart for details) 80-year-old female, vital signs reviewed, sent here by senior living for G-tube replacement after reported G-tube found dislodged this morning during afternoon/evening medication rounds by staff. Replace G-tube with 18 [place] 20 cc balloon without difficulty through the G- tube stoma, gastric contents expelled through tube, flushed with 60 cc tap water without difficulty, patient tolerated well. ED plan will return to senior living, use G-tube as directed by primary care physician. ED nursing staff to dress G-tube site. Discussed with the patient all findings and diagnostic testing as well as the need to follow-up with their primary care provider for further evaluation and treatment or return to the ED if any new or worsening symptoms. Strict return precautions were also discussed at length, the patient voiced understanding and agreement with the discharge planning. The patient was nontoxic in appearance, in no apparent distress, and hemodynamically stable at the time of disposition. (JANNET QUIROS APRN) Course & Med Decision Making I was the Attending physician on the above date of service of this patient. This patient was evaluated, examined, treated, and dispositioned from the emergency department by the mid-level practitioner. Although I was working at the time , no assistance was requested. Electronically signed, Joanna Barrientos DO (JOANNA BARRIENTOS DO) Rene Disclaimer: Rene Disclaimer: This electronic medical record was generated, in whole or in part, using a voice recognition dictation system. (JANNET QUIROS APRN) Departure Departure Impression: Primary Impression: Gastrostomy tube dysfunction Disposition: HOME / SELF CARE / HOMELESS Condition: GOOD Referrals: Quita ROSS MD (PCP) Additional Instructions: Your G-tube has been replaced, please use as directed by your primary care physician. Thank you for visiting our Emergency Department. It was a pleasure taking care of you today in the emergency department and we appreciate you trusting us with your care. If any additional problems come up don't hesitate to return to visit us. Please follow up with your primary care provider so they can plan additional care if needed and know about the problem that you had. If symptoms worsen come back to the Emergency Department. Any concerning symptoms that start such as chest pain, shortness of air, weakness or numbness on one side of the body, running high fevers or any other concerning symptoms return to the ER. JANNET QUIROS APRN Mar 31, 2021 19:06 JOANNA BARRIENTOS DO Apr 01, 2021 17:57
[2021-03-31 20:28] VITALS: BP 121/66
== END 2021-03-31 20:38 | disposition home or self-care (01) ==
LOC: ER 18:30
DX: K94.23 Gastrostomy malfunction (principal); M19.90 Unspecified osteoarthritis, unspecified site; F03.90 Unspecified dementia, unspecified severity, without behavioral disturbance, psychotic disturbance, mood disturbance, and anxiety; Z86.73 Personal history of transient ischemic attack (TIA), and cerebral infarction without residual deficits; Z88.1 Allergy status to other antibiotic agents; Z88.8 Allergy status to other drugs, medicaments and biological substances
CPT/HCPCS: 43762; 99284; 99285